=== PATIENT | male | born 1965 | race Caucasian/White ===

== ENCOUNTER 2016-11-03 11:36 | Inpatient (IN) | payer BC ==
[~2016-11-03] VITALS: Ht 152.4 cm; Wt 110.0 kg
[2016-11-03] VITALS (8 sets, daily range): BP systolic 131–181; BP diastolic 76–98; PULSE 67–84; TEMP 36.4–37.1; O2SAT 94–99; Ht 152.4 cm; Wt 110.0 kg
[2016-11-03] MEDS ORDERED: HYDROmorphone INJ 1 MG/ML SYR IV STA ×2 (12:10)
[2016-11-03] MEDS ORDERED: SODIUM CHLORIDE 0.9% 1000ML 1,000 ML IV STA (12:10)
[2016-11-03] MEDS ORDERED: ONDANSETRON INJ 2 MG/ML 2 ML VIAL IV STA ×2 (12:10)
[2016-11-03] MEDS ORDERED: LISI-729 PO (12:14)
[2016-11-03] MEDS ORDERED: SITA100T3 PO (12:14)
[2016-11-03] MEDS ORDERED: PRVC10 PO (12:14)
[2016-11-03] MEDS ORDERED: GLIM4TAB PO (12:14)
[2016-11-03] MEDS ORDERED: ASPI81TA28 PO (12:14)
[2016-11-03 12:21] LABS: BASO % 0.3 %; BASO ABS # 0.03 K/uL (0-0.2); COMPLETE YES; EOS % 0.6 %; IG% 0.3 %; LYMPH % 18.8 %; LYMPH ABS # 2.24 K/uL (1.2-3.4); MEAN CELL VOLUME 89.2 fL (80-100); MEAN CORPUSCULAR HGB CONC 35.8 g/dl (32-36); MEAN PLATELET VOLUME 11.3 fL (7.4-10.4); MONO % 12.2 %; NEUT % 67.8 %; PLATELET COUNT 160 K/uL (130-400); RED BLOOD COUNT 4.82 M/uL (4.7-6.1); WHITE BLOOD COUNT 11.91 K/uL (4.8-10.8)
--- NOTE | 2016-11-03 12:27 | EMERGENCY ROOM VISIT NOTE ---
History Report prepared by Dorothy: Petar Cabrera Under the Supervision of: Dr. Reji Sutton M.D. First contact with patient: 12:06 Chief Complaint: KIDNEY STONE Stated Complaint: KIDNEY STONE LODGED History of Present Illness The patient is a 51 year old male who presents to the Emergency Room with complaints of persistent left sided flank pain starting a few days ago. The patient was seen at the [facility] 2 days ago. He had a CT scan which showed 15 mm large obstructing left mid ureter calculus with severe hydronephrosis and perinephric edema. The patient currently complains of nausea and severe pain. He denies chest pain, shortness of breath, or any other complaints. Source of History: patient Onset: a few days ago Position: other (left sided flank) Symptom Intensity: severe Timing: other (persistent) Associated Symptoms: + nausea, No SOB, No chest pain Review of Systems See HPI for pertinent positives & negatives. A total of 10 systems reviewed and were otherwise negative. Past Medical & Surgical Medical Problems: (1) Diabetes mellitus, type II (2) Dyslipidemia (3) Kidney stone (4) Renal calculi Surgical Problems: (1) H/O lithotripsy Family History Patient reports no known family medical history. Social History Smoking Status: Never Smoker Marital Status: Occupation Status: employed Current/Historical Medications Scheduled Aspirin (Aspirin Ec), 81 MG PO DAILY Glimepiride (Amaryl), 4 MG PO BID Lisinopril (Prinivil), 5 MG PO DAILY Pravastatin Sod (Pravastatin Sodium), 10 MG PO HS Sitagliptin Phosphate (Januvia), 100 MG PO DAILY Allergies Coded Allergies: Simvastatin (Verified Allergy, Mild, ., 11/03/16) Physical Exam Vital Signs Date Time Temp Pulse Resp B/P Pulse Ox O2 Delivery O2 Flow Rate FiO2 11/03/16 13:45 59 18 153/87 98 Room Air 11/03/16 12:30 99 Room Air 11/03/16 12:26 62 18 136/77 99 Room Air 11/03/16 11:45 36.7 66 16 126/77 98 Room Air Physical Exam CONSTITUTIONAL: Moderate painful distress HEENT: No icterus, moist mucous membranes NECK: No meningismus, trachea is midline. CARDIOVASCULAR: Regular rate, normal perfusion RESPIRATORY: Unlabored breathing. Clear to auscultation. GASTROINTESTINAL: Non-tender GENITOURINARY: left sided flank tenderness MUSCULOSKELETAL: Full range of motion NEUROLOGIC: No acute gross focal deficits. PSYCHIATRIC: Normal affect SKIN: Normal for ethnicity. Medical Decision & Procedures ER Provider Diagnostic Interpretation: X-ray results as stated below per interpretation by me and the radiologist. KUB CLINICAL HISTORY: Left ureteral calculus COMPARISON STUDY: No previous studies for comparison. FINDINGS: No renal calculi are visualized. There is a faint 17 mm opacity at the L3-4 level to the left of midline. A faintly opaque left ureteral calculus cannot be excluded. There is no pathologic bowel dilatation. IMPRESSION: 1. No evidence of pathologic bowel dilatation 2. Very faint 17 mm opacity at the L3-4 level to the left of midline. A faintly opaque left ureteral calculus cannot be excluded. CT scanning could be obtained in follow-up for further evaluation as deemed clinically indicated. Electronically signed by: Kan Goetz M.D. 11/03/2016 1:19 PM Dictated Date/Time: 11/03/2016 1:16 PM Laboratory Results 11/03/16 12:02 Red Blood Count 4.82, Mean Corpuscular Volume 89.2, Mean Corpuscular Hemoglobin 32.0, Mean Corpuscular Hemoglobin Concent 35.8, Mean Platelet Volume 11.3, Neutrophils (%) (Auto) 67.8, Lymphocytes (%) (Auto) 18.8, Monocytes (%) (Auto) 12.2, Eosinophils (%) (Auto) 0.6, Basophils (%) (Auto) 0.3, Neutrophils # (Auto ) 8.09, Lymphocytes # (Auto) 2.24, Monocytes # (Auto) 1.45, Eosinophils # (Auto ) 0.07, Basophils # (Auto) 0.03 11/03/16 12:02 Test 11/03/16 12:02 White Blood Count 11.91 K/uL (4.8-10.8) Red Blood Count 4.82 M/uL (4.7-6.1) Hemoglobin 15.4 g/dL (14.0-18.0) Hematocrit 43.0 % (42-52) Mean Corpuscular Volume 89.2 fL (80-100) Mean Corpuscular Hemoglobin 32.0 pg (25-34) Mean Corpuscular Hemoglobin Concent 35.8 g/dl (32-36) Platelet Count 160 K/uL (130-400) Mean Platelet Volume 11.3 fL (7.4-10.4) Neutrophils (%) (Auto) 67.8 % Lymphocytes (%) (Auto) 18.8 % Monocytes (%) (Auto) 12.2 % Eosinophils (%) (Auto) 0.6 % Basophils (%) (Auto) 0.3 % Neutrophils # (Auto) 8.09 K/uL (1.4-6.5) Lymphocytes # (Auto) 2.24 K/uL (1.2-3.4) Monocytes # (Auto) 1.45 K/uL (0.11-0.59) Eosinophils # (Auto) 0.07 K/uL (0-0.5) Basophils # (Auto) 0.03 K/uL (0-0.2) RDW Standard Deviation 39.9 fL (36.4-46.3) RDW Coefficient of Variation 12.4 % (11.5-14.5) Immature Granulocyte % (Auto) 0.3 % Immature Granulocyte # (Auto) 0.03 K/uL (0.00-0.02) Anion Gap 12.0 mmol/L (3-11) Est Creatinine Clear Calc Drug Dose 49.7 ml/min Estimated GFR () 48.7 Estimated GFR (Non- 42.0 BUN/Creatinine Ratio 12.7 (10-20) Calcium Level 8.8 mg/dl (8.5-10.1) Hepatitis C Antibody Screen NEG (NEG) Labs reviewed by ED physician. Medications Administered Medications (Trade) Dose Ordered Sig/Beryl Route Start Time Stop Time Status Last Admin Dose Admin Sodium Chloride (Nss 1000ml) 1,000 ml @ 0 mls/hr Q0M STAT IV 11/03/16 12:10 11/03/16 12:13 DC 11/03/16 12:19 999 MLS/HR Hydromorphone HCl (Dilaudid Inj) 1 mg PRN STAT IV 11/03/16 12:10 11/03/16 12:13 DC 11/03/16 12:20 1 MG Ondansetron HCl (Zofran Inj) 4 mg NOW STAT IV 11/03/16 12:10 11/03/16 12:13 DC 11/03/16 12:19 4 MG Ketorolac Tromethamine (Toradol Inj) 30 mg STK-MED ONCE .ROUTE 11/03/16 13:38 11/03/16 13:40 DC 11/03/16 13:45 15 MG ED Course 1206: Past medical records reviewed. The patient was evaluated in room C11B. A complete history and physical examination was performed. 1210: Zofran Inj 4 mg IV, Dilaudid Inj 1 mg IV, Sodium Chloride 1000 ml @ 0 mls/ hr Wide Open IV 1336: Upon reexamination the patient is resting comfortably. I discussed results and treatment plan with the patient. He verbalizes agreement and understanding. I spoke with Norma Jaime PA-C from the [facility]. The patient will be evaluated for further management. Medical Decision 51-year-old with known history of stones presents into the emergency room for intractable pain after CT demonstrated 15 mm stone and edema with perinephric stranding at another facility. Medicated for pain and admission arranged. Consults Time Called: 1331 Consulting Physician: Norma Jaime PA-C from the [facility] Returned Call: [phone] I spoke with Norma Jaime PA-C from the [facility]. Impression Primary Impression: Kidney stone Scribe Attestation The scribe's documentation has been prepared under my direction and personally reviewed by me in its entirety. I confirm that the note above accurately reflects all work, treatment, procedures, and medical decision making performed by me. Departure Information Dispostion Being Evaluated By Hospitalist Referrals No Doctor, Assigned (PCP) Patient Instructions My [facility]
[2016-11-03 12:35] LABS: BUN/CREATININE RATIO 12.7 (10-20); CALCIUM 8.8 mg/dl (8.5-10.1); CREATININE 1.8 mg/dl (0.60-1.40); POTASSIUM 3.7 mmol/L (3.5-5.1)
--- NOTE | 2016-11-03 13:20 | DIAGNOSTIC IMAGING REPORT ---
KUB CLINICAL HISTORY: Left ureteral calculus COMPARISON STUDY: No previous studies for comparison. FINDINGS: No renal calculi are visualized. There is a faint 17 mm opacity at the L3-4 level to the left of midline. A faintly opaque left ureteral calculus cannot be excluded. There is no pathologic bowel dilatation. IMPRESSION: 1. No evidence of pathologic bowel dilatation 2. Very faint 17 mm opacity at the L3-4 level to the left of midline. A faintly opaque left ureteral calculus cannot be excluded. CT scanning could be obtained in follow-up for further evaluation as deemed clinically indicated. Electronically signed by: Kan Goetz M.D. 11/03/2016 1:19 PM Dictated Date/Time: 11/03/2016 1:16 PM
[2016-11-03] MEDS ORDERED: KETOROLAC TROMETHAMINE 30 MG/ML VIAL ONE (13:38)
[2016-11-03] MEDS ORDERED: ONDANSETRON INJ 2 MG/ML 2 ML VIAL IV PRN ×2 (14:15→17:30)
[2016-11-03] MEDS ORDERED: ACETAMINOPHEN 325 MG TAB PO PRN (14:15)
[2016-11-03] MEDS ORDERED: TAMSULOSIN HCL 0.4 MG CAP PO ONE (14:15)
[2016-11-03] MEDS ORDERED: DEXTROSE 50% 50 ML SYR IV PRN (14:30)
[2016-11-03] MEDS ORDERED: GLUCOSE 40% GEL 15 GM TUBE PO PRN (14:30)
[2016-11-03] MEDS ORDERED: GLUCAGON FOR INJ 1 MG VIAL SQ PRN (14:30)
[2016-11-03] MEDS ORDERED: GLUCOSE 10 TABS/TUBE PO PRN (14:30)
[2016-11-03] MEDS ORDERED: KETOROLAC TROMETHAMINE 30 MG/ML VIAL IV PRN (14:45)
--- NOTE | 2016-11-03 14:51 | History and Physical ---
History & Physical Date & Time of Service: Nov 03, 2016 at 14:30 Chief Complaint: Kidney Stone Lodged Primary Care Physician: Duong Schultz D.O. History of Present Illness Source: patient This is a 51 y/o male with PMHx of DM 2 and dyslipidemia who presents to the ED c/o L flank pain x 2 hammond. Pt reports that 2 days ago he developed L flank pain that he describes as intermittent 8/10 "stabbing" pain that radiates into his groin. He has been taking oxycodone, ibuprofen and zofran to alleviate his sxs with only minimal temporary relief. Sxs are assoc with N/V. Pt was seen at [facility] ED [address] abd/pelvis showed 15 mm L ureteral calculus. Pt was discharged with pain medication and told to f/u next week to schedule procedure. This morning, the pain got much worse which prompted patient to return to the ED. Pt has a history of multiple stones in the past one of which required intervention (lithotripsy 2013). Pt denies fever/chills, chest pain, SOB, abd pain, constipation, diarrhea, dysuria, hematuria, LE edema , calf pain, lightheadedness/dizziness. In the ED, vitals are stable. Pt is afebrile with leukocytosis >11. creatinine 1.8. KUB + 17 mm obstructing L ureteral calculus. Pt received IVF, Zofran and pain medication in the ED which has helped. Pt will be admitted for further evaluation and treatment. Past Medical/Surgical History Medical Problems: (1) Diabetes mellitus, type II Status: Chronic (2) Dyslipidemia Status: Chronic Surgical Problems: (1) H/O lithotripsy Permanent Comment: L side 2013 Status: Resolved Family History Patient reports no known family medical history. Social History Smoking Status: Never Smoker Alcohol Use: occasionally Drug Use: none Marital Status: Housing status: lives with family Occupational Status: employed Allergies Coded Allergies: Simvastatin (Verified Allergy, Mild, ., 11/03/16) Home Medications Scheduled Aspirin (Aspirin Ec), 81 MG PO DAILY Glimepiride (Amaryl), 4 MG PO BID Lisinopril (Prinivil), 5 MG PO DAILY Pravastatin Sod (Pravastatin Sodium), 10 MG PO HS Sitagliptin Phosphate (Januvia), 100 MG PO DAILY Review of Systems Constitutional: No chills, No fatigue, No fever, No sweats, No weakness Eyes: No worsening of vision Respiratory: No cough, No shortness of breath Cardiovascular: No chest pain, No claudication, No edema Abdomen: + nausea, + vomiting, No constipation, No diarrhea, No pain Musculoskeletal: No calf pain, No swelling Genitourinary - Male: No dysuria, No hematuria Neurologic: No weakness Psychiatric: No depression symptoms Endocrine: No fatigue Hematologic / Lymphatic: No abnormal bleeding/bruising Integumentary: No new/changing skin lesions Physical Exam Vital Signs Date Time Temp Pulse Resp B/P Pulse Ox O2 Delivery O2 Flow Rate FiO2 11/03/16 13:45 59 18 153/87 98 Room Air 11/03/16 12:30 99 Room Air 11/03/16 12:26 62 18 136/77 99 Room Air 11/03/16 11:45 36.7 66 16 126/77 98 Room Air General Appearance: WD/WN, no apparent distress, + pertinent finding (Pt is sitting up in bed with at bedside ) Head: normocephalic, atraumatic Eyes: normal inspection ENT: hearing grossly normal Neck: supple Respiratory/Chest: chest non-tender, lungs clear, normal breath sounds, no respiratory distress Cardiovascular: regular rate, rhythm, no edema, no murmur Abdomen/GI: normal bowel sounds, soft, + tenderness (mild left lower quadrant tenderness) Back: normal inspection, + left CVA tenderness Extremities/Musculoskelatal: normal inspection, no calf tenderness, no pedal edema Neurologic/Psych: alert, normal mood/affect, oriented x 3 Skin: normal color, warm/dry Diagnostics Laboratory Results Results Past 24 Hours Test 11/03/16 12:02 Range/Units White Blood Count 11.91 4.8-10.8 K/uL Red Blood Count 4.82 4.7-6.1 M/uL Hemoglobin 15.4 14.0-18.0 g/dL Hematocrit 43.0 42-52 % Mean Corpuscular Volume 89.2 80-100 fL Mean Corpuscular Hemoglobin 32.0 25-34 pg Mean Corpuscular Hemoglobin Concent 35.8 32-36 g/dl Platelet Count 160 130-400 K/uL Mean Platelet Volume 11.3 7.4-10.4 fL Neutrophils (%) (Auto) 67.8 % Lymphocytes (%) (Auto) 18.8 % Monocytes (%) (Auto) 12.2 % Eosinophils (%) (Auto) 0.6 % Basophils (%) (Auto) 0.3 % Neutrophils # (Auto) 8.09 1.4-6.5 K/uL Lymphocytes # (Auto) 2.24 1.2-3.4 K/uL Monocytes # (Auto) 1.45 0.11-0.59 K/uL Eosinophils # (Auto) 0.07 0-0.5 K/uL Basophils # (Auto) 0.03 0-0.2 K/uL RDW Standard Deviation 39.9 36.4-46.3 fL RDW Coefficient of Variation 12.4 11.5-14.5 % Immature Granulocyte % (Auto) 0.3 % Immature Granulocyte # (Auto) 0.03 0.00-0.02 K/uL Sodium Level 139 136-145 mmol/L Potassium Level 3.7 3.5-5.1 mmol/L Chloride Level 104 98-107 mmol/L Carbon Dioxide Level 23 21-32 mmol/L Anion Gap 12.0 3-11 mmol/L Blood Urea Nitrogen 23 7-18 mg/dl Creatinine 1.80 0.60-1.40 mg/dl Est Creatinine Clear Calc Drug Dose 49.7 ml/min Estimated GFR () 48.7 Estimated GFR (Non- 42.0 BUN/Creatinine Ratio 12.7 10-20 Random Glucose 134 70-99 mg/dl Calcium Level 8.8 8.5-10.1 mg/dl Diagnostic Radiology KUB IMPRESSION: 1. No evidence of pathologic bowel dilatation 2. Very faint 17 mm opacity at the L3-4 level to the left of midline. A faintly opaque left ureteral calculus cannot be excluded. CT scanning could be obtained in follow-up for further evaluation as deemed clinically indicated. Impression Assessment and Plan L OBSTRUCTING URETERAL CALCULUS pt presented with L flank pain x 2 says assoc with N/V; h/o multiple renal calculi -admit to med/surg -pt is afebrile with leukocytosis -KUB + 17mm obstructing L ureteral calculus -UA uncollected; will check culture -start IVF and Flomax -Toradol PRN pain -Pyridium post-operatively x 3 days -no post-op abx per urology -consulted urology, Dr. Baltazar -monitor HEATHER -creatinine elevated at 1.8 (bl=1.0); due to obstruction (see above) -hold lisinopril and start IVF -monitor with prp daily and avoid nephrotoxic agents when able DM 2 -last A1C 9.3; repeat in AM -hold Januvia and Glimepiride -start ISS -monitor DYSLIPIDEMIA -cont statin DVT PROPHYLAXIS -SCDs only due to upcoming procedure CODE STATUS -FULL CODE status DISPO -Pt seen in collaboration with Dr. Leary. Please see her addendum for further details. Thanks! ADDENDUM: I have evaluated the patient and discussed the case with the provider above. He is s/p ureteroscopy with stone removal and stent placement and is pain-free and feeling well. BP is elevated and he denies taking lisinopril today, will cont to hold in setting of HEATHER and give IV hydralazine and PRN for overnight. On exam he is hemodynamically stable and afebrile, exam is unremarkable with no CVA tenderness or abdominal pain. I agree with the plan as stated above and also noted that Dr. Baltazar requested no abx after loading with Ancef today. Pyridium was ordered for dysuria. Will stabilize BP overnight and repeat PRP in the morning to ensure he is better. Radha Leary , Hospitalist Level of Care Med/Surg Advanced Directives Existing Living Will: No Existing Power of Customer Servicer: No Resuscitation Status FULL RESUSCITATION VTE Prophylaxis VTE Risk Assessment Done? Y/N: Yes Risk Level: Low Given or contraindicated: SCD's
[2016-11-03 15:07] LABS: MANUAL MICROSCOPIC REQUIRED? NO; REVIEW REQ? YES; URINE APPEARANCE CLOUDY (CLEAR); URINE BILIRUBIN NEG (NEG); URINE COLOR YELLOW; URINE NITRITE NEG (NEG); UROBILINOGEN NEG (NEG); ZZUR CULT IF INDIC CLEAN CATCH NO
[2016-11-03] MEDS ORDERED: PNEUMOCOCCAL ADMINISTRATION CHARGE ONE (15:15)
[2016-11-03] MEDS ORDERED: PNEUMOCOCCAL POLYSACCHARIDES 25 MCG/0.5 ML VIAL/SYR IM. ONE (15:15)
[2016-11-03] MEDS: SODIUM CHLORIDE 0.9% 1000ML 1,000 ML IV SCH ×2 (15:29→19:53)
[2016-11-03] MEDS ORDERED: ROCURONIUM BROMIDE 10 MG/ML 5 ML VIAL ONE (15:55)
[2016-11-03] MEDS ORDERED: LIDOCAINE HCL 2% 2 ML VIAL (20MG/ML) ONE (15:55)
[2016-11-03] MEDS ORDERED: ONDANSETRON INJ 2 MG/ML 2 ML VIAL ONE (15:55)
[2016-11-03] MEDS ORDERED: PROPOFOL IV EMULSION 10 MG/ML 20 ML VIAL IV ONE ×2 (15:55→16:44)
[2016-11-03] MEDS ORDERED: MIDAZOLAM HCL 1 MG/ML 2ML VIAL ONE (15:55)
[2016-11-03] MEDS ORDERED: FENTANYL CITRATE INJ 50 MCG/1 ML 2 ML VIAL ONE ×2 (15:55→16:27)
[2016-11-03] MEDS ORDERED: DEXAMETHASONE SOD INJ 4 MG/ML VIAL ONE (15:55)
[2016-11-03] MEDS ORDERED: NURSING VERBAL MED ORDER ONE (16:10)
[2016-11-03] MEDS ORDERED: CEFAZOLIN IV 2,000 MG/60 ML D5W IV ONE (16:13)
--- NOTE | 2016-11-03 16:18 | Urology Consultation ---
History General Date of Service: Nov 03, 2016. Chief Complaint: left ureteral stone Primary Care Physician: Duong Schultz D.O. Pt seen a urologist before?: Yes If yes, why?: left renal stone History of Present Illness I am asked by Norma Jaime to evaluate and treat patient for stone. He is in ER with 155 left ureteral stone. His creatinine is elevated. He has mild to moderate pain and nausea. He has no fever. Imaging Imaging: CT, KUB Laboratory Results Past 24 Hours Test 11/03/16 12:02 11/03/16 14:48 Range/Units White Blood Count 11.91 4.8-10.8 K/uL Red Blood Count 4.82 4.7-6.1 M/uL Hemoglobin 15.4 14.0-18.0 g/dL Hematocrit 43.0 42-52 % Mean Corpuscular Volume 89.2 80-100 fL Mean Corpuscular Hemoglobin 32.0 25-34 pg Mean Corpuscular Hemoglobin Concent 35.8 32-36 g/dl Platelet Count 160 130-400 K/uL Mean Platelet Volume 11.3 7.4-10.4 fL Neutrophils (%) (Auto) 67.8 % Lymphocytes (%) (Auto) 18.8 % Monocytes (%) (Auto) 12.2 % Eosinophils (%) (Auto) 0.6 % Basophils (%) (Auto) 0.3 % Neutrophils # (Auto) 8.09 1.4-6.5 K/uL Lymphocytes # (Auto) 2.24 1.2-3.4 K/uL Monocytes # (Auto) 1.45 0.11-0.59 K/uL Eosinophils # (Auto) 0.07 0-0.5 K/uL Basophils # (Auto) 0.03 0-0.2 K/uL RDW Standard Deviation 39.9 36.4-46.3 fL RDW Coefficient of Variation 12.4 11.5-14.5 % Immature Granulocyte % (Auto) 0.3 % Immature Granulocyte # (Auto) 0.03 0.00-0.02 K/uL Sodium Level 139 136-145 mmol/L Potassium Level 3.7 3.5-5.1 mmol/L Chloride Level 104 98-107 mmol/L Carbon Dioxide Level 23 21-32 mmol/L Anion Gap 12.0 3-11 mmol/L Blood Urea Nitrogen 23 7-18 mg/dl Creatinine 1.80 0.60-1.40 mg/dl Est Creatinine Clear Calc Drug Dose 49.7 ml/min Estimated GFR () 48.7 Estimated GFR (Non- 42.0 BUN/Creatinine Ratio 12.7 10-20 Random Glucose 134 70-99 mg/dl Calcium Level 8.8 8.5-10.1 mg/dl Hepatitis C Antibody Screen NEG NEG Urine Color YELLOW Urine Appearance CLOUDY CLEAR Urine pH 5.0 4.5-7.5 Urine Specific [place] 1.030 1.000-1.030 Urine Protein TRACE NEG Urine Glucose (UA) 2+ NEG Urine Ketones 1+ NEG Urine Occult Blood 2+ NEG Urine Nitrite NEG NEG Urine Bilirubin NEG NEG Urine Urobilinogen NEG NEG Urine Leukocyte Esterase NEG NEG Urine WBC (Auto) 5-10 0-5 /hpf Urine RBC (Auto) 0-4 0-4 /hpf Urine Hyaline Casts (Auto) 1-5 0-5 /lpf Urine Epithelial Cells (Auto) 10-20 0-5 /lpf Urine Bacteria (Auto) NEG NEG Urine Crystals TRIPLE PHOSPHATE NONE PRSENT Labs were reviewed and are within normal limits unless listed below. Labs are available in the chart and at [facility] Past History diabetes, high cholesterol Past Surgical History: other (stone surgery) Family History Patient reports no known family medical history. Social History Hx Tobacco Use In Past Year?: No Smoking: non-smoker Alcohol: socially Marital status: Housing status: lives with family Occupation status: employed Allergies Coded Allergies: Simvastatin (Verified Allergy, Mild, ., 11/03/16) Medications Home Medications: Home Meds and Scripts Medications Dose Route/Sig Max Daily Dose Days Date Category Januvia (Sitagliptin Phosphate) 100 Mg Tab 100 Mg PO DAILY 11/03/16 Reported Aspirin Ec (Aspirin) 81 Mg Tab 81 Mg PO DAILY 11/03/16 Reported Amaryl (Glimepiride) 4 Mg Tab 4 Mg PO BID 11/03/16 Reported Pravastatin Sodium (Pravastatin Sod) 10 Mg Tab 10 Mg PO HS 11/03/16 Reported Prinivil (Lisinopril) 5 Mg Tab 5 Mg PO DAILY 11/03/16 Reported Inpatient Medications: Current Inpatient Medications Medications (Trade) Dose Ordered Sig/Beryl Route Start Time Stop Time Status Last Admin Dose Admin Acetaminophen (Tylenol Tab) 650 mg Q4H PRN PO 11/03/16 14:15 12/03/16 14:14 Ondansetron HCl (Zofran Inj) 4 mg Q6H PRN IV 11/03/16 14:15 12/03/16 14:14 Tamsulosin HCl 0.4 mg 0.4 mg QAM PO 11/04/16 09:00 12/04/16 08:59 Sodium Chloride (Nss 1000ml) 1,000 ml @ 100 mls/hr Q10H IV 11/03/16 14:15 12/03/16 14:14 11/03/16 15:29 100 MLS/HR Insulin Aspart (novoLOG ASPART) SLIDING SCALE If C... ACHS SC 11/03/16 16:00 12/03/16 15:59 Glucose (Glucose 40% Gel) 15-30 GRAMS 15 GRAMS... UD PRN PO 11/03/16 14:30 12/03/16 14:29 Glucose (Glucose Chew Tab) 4-8 Tablets 4 Tabl... UD PRN PO 11/03/16 14:30 12/03/16 14:29 Dextrose (Dextrose 50% 50ML Syringe) 25-50ML OF 50% DW IV FOR... UD PRN IV 11/03/16 14:30 12/03/16 14:29 Glucagon (Glucagon Inj) 1 mg UD PRN SQ 11/03/16 14:30 12/03/16 14:29 Ketorolac Tromethamine (Toradol Inj) 30 mg Q6H PRN IV 11/03/16 14:45 11/08/16 14:44 Review of Systems Review of Systems Constitutional: No chills, No fever, No frequent headaches, No weight loss Neurological: No dizzy Endocrine: No excessive thirst, No tired/sluggish, No too cold, No too hot Gastrointestinal: + abdominal pain, + nausea, No constipation, No diarrhea Cardiovascular: No chest pain, No palpitations Respiratory: No shortness of breath Male : + kidney stones, + nocturia more than once/night, No frequent urination, No infections Physical Exam Vital Signs: Vital Signs Past 12 Hours Date Time Temp Pulse Resp B/P Pulse Ox O2 Delivery O2 Flow Rate FiO2 11/03/16 15:45 36.7 71 18 151/89 94 Room Air 11/03/16 13:45 59 18 153/87 98 Room Air 11/03/16 12:30 99 Room Air 11/03/16 12:26 62 18 136/77 99 Room Air 11/03/16 11:45 36.7 66 16 126/77 98 Room Air Physical Exam: General Appearance: WD/WN, no apparent distress, + obese Eyes: bilateral eyes normal inspection ENT: hearing grossly normal Neck: no adenopathy Respiratory/Chest: no respiratory distress, no accessory muscle use Extremities: normal inspection, no pedal edema, no calf tenderness Neurologic/Psychiatric: alert, normal mood/affect, oriented x 3 Skin: normal color, warm/dry, no rash Assessment & Plan Assessment & Plan large left ureteral stone plan left uscope laser litho basket stone extraction stent I described surgery and he signed consent
[2016-11-03] MEDS ORDERED: GLYCOPYRROLATE INJ 0.2 MG/ML VIAL ONE (17:05)
[2016-11-03] MEDS ORDERED: NEOSTIGMINE METHYLSULFATE 5 MG/5 ML SYR ONE (17:05)
[2016-11-03] MEDS ORDERED: BELLADONNA/OPIUM SUPP 60 MG SUPP PR ONE (17:07)
[2016-11-03] MEDS ORDERED: LACTATED RINGER'S 1000ML 1,000 ML IV PRN (17:19)
--- NOTE | 2016-11-03 17:22 | DIAGNOSTIC IMAGING REPORT ---
FLUOROSCOPIC IMAGES FROM LEFT RETROGRADE EXAM CLINICAL HISTORY: Stent placement. Retrograde exam. COMPARISON STUDY: KUB performed earlier today. Fluoroscopy time: 17 seconds. FINDINGS: 2 fluoroscopic images were obtained from a left retrograde exam and demonstrate cannulation of the left ureter with placement of a left ureteral stent. Distal aspect of the stent projects over the left aspect of the bladder. IMPRESSION: Fluoroscopic images from left retrograde exam with stent insertion. Electronically signed by: Benjamin Vogel M.D. 11/03/2016 5:21 PM Dictated Date/Time: 11/03/2016 5:20 PM
--- NOTE | 2016-11-03 17:22 | [facility] Operative Report ---
Operative Report Operative Date Nov 03, 2016. Pre-Operative Diagnosis obstructing left ureteral stone Post-Operative Diagnosis same Procedure(s) Performed cysto left ureteroscopy laser lithotripsy basket stone extraction stent placement Surgeon Dr. Tali Baltazar Mirror Fabrication Supervisor Surgeon(s) None Estimated Blood Loss 2ml Findings faintly radio-opaque large stone in upper ureter Fluids 1100mL Specimens A. Left Ureteral Stone Fragmants Drains 6 fr 24 centimeter double J stent Anesthesia GET Complication(s) None Disposition Recovery Room / PACU Indications patient with large obstructing left upper ureteral stone. Description of Procedure Patient was given general ET anesthesia and placed in lithotomy position. His genitals were prepped and draped in sterile fashion. Time out held with team. I placed a 21 fr rigid cystoscope to bladder. The urethra is unremarkable. The prostate is medium. The UOs are normal location and open shape. There are scores of small yellow crystals free floating in bladder. I placed a road runner wire up left ureter easily. I placed a 5 fr open ended over wire to kidney and there is brisk efflux thru it. I replaced wire for stiff wire. I then placed a dual lumen cath into distal ureter to calibrate UO. I placed a second wire. I removed dual lumen. I placed a flex ureteroscope over the second wire to upper ureter. I found stone as in imaging in upper ureter. It is bright yellow and oblong large. I used 200 micron holmium laser to fragment the stone into mostly dust. It eventually migrated into kdieny and I lasered it more there. I used a 2.2 fr tipless basket to remove about 5 stone fragments. All were very small and passed easily down ureter. I then removed scope and placed a 24 centimeter 6 Fr double J stent easily. There is brisk efflux after placement. I left bladder empty and concluded case. I placed a belladonna and opium suppository for post-op pain. He transferred to recovery under my escort, in stable condition. Plan: Home today Pyridium for dysuria x 3 days flomax daily until stent out in [facility] office in one week. 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 Any exceptions are noted below.
[2016-11-03] MEDS ORDERED: FENTANYL CITRATE INJ 50 MCG/1 ML 2 ML VIAL IV PRN (17:30)
[2016-11-03] MEDS ORDERED: PHENAZOPYRIDINE HCL 200 MG TAB PO PRN (17:30)
--- NOTE | 2016-11-03 17:54 | Anesthesiology Progress Note ---
Anesthesia Post Op Note Date & Time Nov 03, 2016 at 17:54 Vital Signs Pain Intensity: 0 Vital Signs Past 12 Hours Date Time Temp Pulse Resp B/P Pulse Ox O2 Delivery O2 Flow Rate FiO2 11/03/16 17:35 37.3 75 16 134/71 98 Mask 10 11/03/16 15:45 36.7 71 18 151/89 94 Room Air 11/03/16 15:15 Room Air 11/03/16 13:45 59 18 153/87 98 Room Air 11/03/16 12:30 99 Room Air 11/03/16 12:26 62 18 136/77 99 Room Air 11/03/16 11:45 36.7 66 16 126/77 98 Room Air Notes Mental Status: alert / awake / arousable, participated in evaluation Pt Amnestic to Procedure: Yes Nausea / Vomiting: adequately controlled Pain: adequately controlled Airway Patency, RR, SpO2: stable & adequate BP & HR: stable & adequate Hydration State: stable & adequate Anesthetic Complications: no major complications apparent Pt doing well.
[2016-11-03] MEDS: INSULIN ASPART 100 UNITS/ML 3 ML PEN SC SCH ×2 (18:35→21:00)
[2016-11-03] MEDS ORDERED: HydrALAZINE HCL 20 MG/ML VIAL ONE (20:07)
[2016-11-03] MEDS ORDERED: HydrALAZINE HCL 20 MG/ML VIAL IV. STA (20:08)
[2016-11-03] MEDS ORDERED: LISINOPRIL 5 MG TAB PO ONE (20:15)
[2016-11-03] MEDS ORDERED: HydrALAZINE HCL 20 MG/ML VIAL IV. PRN (20:15)
[2016-11-03] MEDS: PHENAZOPYRIDINE HCL 100 MG TAB PO SCH (21:21)
[2016-11-04 04:00] VITALS: BP 120/74; PULSE 76; TEMP 36.8; O2SAT 94
[2016-11-04] MEDS: SODIUM CHLORIDE 0.9% 1000ML 1,000 ML IV SCH ×2 (05:13→11:12)
[2016-11-04 07:12] LABS: HEMATOCRIT 37.2 % (42-52); MEAN CELL VOLUME 89.6 fL (80-100); MEAN CORPUSCULAR HGB CONC 35.8 g/dl (32-36); MEAN PLATELET VOLUME 11.2 fL (7.4-10.4); PLATELET COUNT 142 K/uL (130-400); RED BLOOD COUNT 4.15 M/uL (4.7-6.1)
[2016-11-04 07:30] LABS: ESTIMATED AVERAGE GLUCOSE 212 mg/dl; HA1C FLAG Normal (Normal)
[2016-11-04 07:41] LABS: BUN/CREATININE RATIO 14.1 (10-20); CALCIUM 7.8 mg/dl (8.5-10.1); CREATININE 1.4 mg/dl (0.60-1.40); POTASSIUM 3.9 mmol/L (3.5-5.1)
[2016-11-04 07:45] VITALS: BP 128/82; PULSE 65; TEMP 36.8; O2SAT 95
[2016-11-04] MEDS: PHENAZOPYRIDINE HCL 100 MG TAB PO SCH (08:55)
[2016-11-04] MEDS: INSULIN ASPART 100 UNITS/ML 3 ML PEN SC SCH (08:55)
[2016-11-04] MEDS ORDERED: TAMSULOSIN HCL 0.4 MG CAP PO SCH (09:00)
[2016-11-04 09:17] VITALS: O2SAT 95
[2016-11-04 11:45] VITALS: BP 140/84; PULSE 67; TEMP 37.3; O2SAT 96
--- NOTE | 2016-11-04 12:56 | Progress Note ---
Internal Med Progress Note Date of Service: Nov 04, 2016. Provider Documentation: SUBJECTIVE: Patient is sitting comfortably in the bed and is in no apparent distress. Denies any acute pain, nausea/vomiting. Hematuria is gradually resolving. No other new change or complaint. Able to ambulate in the room. OBJECTIVE: Vital Signs-as noted below Examination: General Appearance: WD/WN, no apparent distress, Pt is sitting up in bed with at bedside Head: normocephalic, atraumatic Eyes: normal inspection ENT: hearing grossly normal Neck: supple, Central trachea, Respiratory/Chest: chest non-tender, lungs clear, normal breath sounds, no respiratory distress Cardiovascular: regular rate, rhythm, no edema, no murmur Abdomen/GI: normal bowel sounds, soft, mild left lower quadrant tenderness. Back: normal inspection, + left CVA which is mild. Extremities/Musculoskeletal: normal inspection, no calf tenderness, no pedal edema Neurologic/Psych: alert, normal mood/affect, oriented x 3 Skin: normal color, warm/dry Lab data as noted below. ASSESSMENT & PLAN: Left Sided Obstructing Ureteral Stone: Underwent cystoscopy left ureteroscopy laser lithotripsy basket stone extraction stent placement Patient presented with L flank pain x 2 says assoc with N/V; h/o multiple renal calculi. He is afebrile with leukocytosis -KUB + 17mm obstructing L ureteral calculus -UA uncollected; will check culture -Given IVF and Flomax -Toradol PRN pain -Pyridium post-operatively x 3 days -no post-op abx per urology -Reviewed Urology consult. Thanks for input. Acute Kidney Injury: Due to above. Resolving now. -Holding lisinopril and given IVF -monitor with prp daily and avoid nephrotoxic agents when able Diabetes Type II: Repeat HbA1c is 9.0. -Holding Januvia and Glimepiride which will be resumed after discharge. -Continue ISS -monitor Dyslipidemia: Continue Statin. DVT Prophylaxis: SCDs Code Status: FULL CODE Disposition: Discharge home later today. Follow up with Dr. Baltazar as per her recommendation. Vital Signs: Date Time Temp Pulse Resp B/P Pulse Ox O2 Delivery O2 Flow Rate FiO2 11/04/16 11:45 37.3 67 18 140/84 96 Room Air 11/04/16 09:17 95 Room Air 11/04/16 07:45 36.8 65 18 128/82 95 Room Air 11/04/16 04:00 36.8 76 16 120/74 94 Room Air 11/04/16 00:10 Room Air 11/03/16 23:12 36.6 76 18 138/79 95 Room Air 11/03/16 21:20 37.0 78 18 131/76 95 Room Air 11/03/16 20:31 37.1 84 18 133/80 96 Room Air 11/03/16 19:31 37.1 71 18 173/98 98 Nasal Cannula 2.0 11/03/16 19:00 36.4 67 18 181/92 99 Nasal Cannula 2.0 11/03/16 18:30 99 Nasal Cannula 2.0 11/03/16 18:07 36.9 58 18 144/82 100 Nasal Cannula 2 11/03/16 18:00 61 14 11/03/16 18:00 60 14 99 11/03/16 17:58 147/85 11/03/16 17:55 65 18 99 11/03/16 17:55 68 18 11/03/16 17:53 143/83 11/03/16 17:50 70 20 98 11/03/16 17:50 69 20 11/03/16 17:48 153/86 11/03/16 17:45 72 19 11/03/16 17:45 71 19 98 11/03/16 17:43 123/83 11/03/16 17:40 82 19 11/03/16 17:40 75 19 98 11/03/16 17:38 148/83 11/03/16 17:36 134/71 11/03/16 17:35 73 16 11/03/16 17:35 74 16 100 11/03/16 17:35 37.3 75 16 134/71 98 Mask 10 11/03/16 17:30 77 17 11/03/16 17:30 77 17 99 11/03/16 15:45 36.7 71 18 151/89 94 Room Air 11/03/16 15:15 Room Air 11/03/16 13:45 59 18 153/87 98 Room Air Lab Results: Results Past 24 Hours Test 11/03/16 14:48 11/03/16 16:08 11/03/16 17:30 11/03/16 20:30 Range/Units Urine Color YELLOW Urine Appearance CLOUDY CLEAR Urine pH 5.0 4.5-7.5 Urine Specific [place] 1.030 1.000-1.030 Urine Protein TRACE NEG Urine Glucose (UA) 2+ NEG Urine Ketones 1+ NEG Urine Occult Blood 2+ NEG Urine Nitrite NEG NEG Urine Bilirubin NEG NEG Urine Urobilinogen NEG NEG Urine Leukocyte Esterase NEG NEG Urine WBC (Auto) 5-10 0-5 /hpf Urine RBC (Auto) 0-4 0-4 /hpf Urine Hyaline Casts (Auto) 1-5 0-5 /lpf Urine Epithelial Cells (Auto) 10-20 0-5 /lpf Urine Bacteria (Auto) NEG NEG Urine Crystals TRIPLE PHOSPHATE NONE PRSENT Bedside Glucose 106 108 142 70-99 mg/dl Test 11/04/16 06:52 11/04/16 08:25 11/04/16 12:09 Range/Units White Blood Count 7.50 4.8-10.8 K/uL Red Blood Count 4.15 4.7-6.1 M/uL Hemoglobin 13.3 14.0-18.0 g/dL Hematocrit 37.2 42-52 % Mean Corpuscular Volume 89.6 80-100 fL Mean Corpuscular Hemoglobin 32.0 25-34 pg Mean Corpuscular Hemoglobin Concent 35.8 32-36 g/dl RDW Standard Deviation 40.6 36.4-46.3 fL RDW Coefficient of Variation 12.5 11.5-14.5 % Platelet Count 142 130-400 K/uL Mean Platelet Volume 11.2 7.4-10.4 fL Sodium Level 141 136-145 mmol/L Potassium Level 3.9 3.5-5.1 mmol/L Chloride Level 107 98-107 mmol/L Carbon Dioxide Level 23 21-32 mmol/L Anion Gap 11.0 3-11 mmol/L Blood Urea Nitrogen 20 7-18 mg/dl Creatinine 1.40 0.60-1.40 mg/dl Est Creatinine Clear Calc Drug Dose 63.9 ml/min Estimated GFR () 66.0 Estimated GFR (Non- 57.0 BUN/Creatinine Ratio 14.1 10-20 Random Glucose 111 70-99 mg/dl Estimated Average Glucose 212 mg/dl Hemoglobin A1c 9.0 4.5-5.6 % Calcium Level 7.8 8.5-10.1 mg/dl Bedside Glucose 128 115 70-99 mg/dl
[2016-11-04] MEDS ORDERED: PHEN-1042 PO (13:03)
[2016-11-04] MEDS ORDERED: FLM4 PO (13:03)
--- NOTE | 2016-11-04 13:05 | Discharge Instructions ---
Discharge Instructions Admission Reason for Admission: Renal Calculi Discharge Discharge Diagnosis / Problem: Left Sided Renal Calculi Discharge Goals Goal(s): Decrease discomfort, Improve function, Increase independence, Improve disease control, Improve nutritional status, Learn about illness, Diagnostic testing, Therapeutic intervention Activity Recommendations Activity Limitations: resume your previous activity Lifting Limitations: no more than 10 pounds Exercise/Sports Limitations: as tolerated May Resume Sexual Activity: after one week Shower/Bathe: no limitations Driving or Machine Use: no limitations . Instructions / Follow-Up Instructions / Follow-Up Take all the medications as directed. Monitor your blood sugar regularly Follow dietary precautions Drink lots of fluids Follow up with Dr. Baltazar as per her advice. Current Hospital Diet Patient's current hospital diet: Diabetes Type 2 Diet Discharge Diet Recommended Diet: AHA Diet (Heart Healthy), Diabetes Type 2 Diet Procedures Procedures Performed: Ureteroscopy, Laser Lithotripsy- Basket Stone Extraction Pending Studies Studies pending at discharge: no Laboratory Results Hemoglobin A1c Test 11/04/16 06:52 Range/Units Estimated Average Glucose 212 mg/dl Hemoglobin A1c 9.0 H 4.5-5.6 % Medical Emergencies . Who to Call and When: Medical Emergencies: If at any time you feel your situation is an emergency, please call 911 immediately. . Non-Emergent Contact Non-Emergency issues call your: Primary Care Provider, Urologist Call Non-Emergent contact if: your pain is worsening . . "Provider Documentation" section prepared by Tad Storm. VTE Core Measure Inpt VTE Proph given/why not?: SCD's
--- NOTE | 2016-11-04 13:08 | Discharge Summary ---
Discharge Summary Admission Date: Nov 03, 2016 at 14:12 Discharge Date: Nov 04, 2016 Discharge Disposition: Home Principal Diagnosis: Left Sided Obstructing Ureteral Stone Acute Kidney In [place] (Resolving) Secondary Diagnoses/Problems: Diabetes Type II Dyslipidemia Procedures: Cystoscopy left ureteroscopy laser lithotripsy basket stone extraction stent placement Vaccinations: NONE Consultations: Urology Pending Studies/Follow-Up: Follow up with Dr. Baltazar as per her advice Needs to follow up with Nephrology to learn alkalinization of Urine. Medication Reconciliation New Medications: Phenazopyridine HCl (Phenazopyridine HCl) 100 Mg Tab 100 MG PO TID, #10 TAB Tamsulosin HCl (Tamsulosin HCl) 0.4 Mg Cap 0.4 MG PO QAM, #14 CAP Continued Medications: Aspirin (Aspirin Ec) 81 Mg Tab 81 MG PO DAILY Glimepiride (Amaryl) 4 Mg Tab 4 MG PO BID Lisinopril (Prinivil) 5 Mg Tab 5 MG PO DAILY Pravastatin Sod (Pravastatin Sodium) 10 Mg Tab 10 MG PO HS Sitagliptin Phosphate (Januvia) 100 Mg Tab 100 MG PO DAILY Admission Information HPI (per Admitting provider): This is a 51 y/o male with PMHx of DM 2 and dyslipidemia who presents to the ED c/o L flank pain x 2 hammond. Pt reports that 2 days ago he developed L flank pain that he describes as intermittent 8/10 "stabbing" pain that radiates into his groin. He has been taking oxycodone, ibuprofen and zofran to alleviate his sxs with only minimal temporary relief. Sxs are assoc with N/V. Pt was seen at [facility] ED [address] abd/pelvis showed 15 mm L ureteral calculus. Pt was discharged with pain medication and told to f/u next week to schedule procedure. This morning, the pain got much worse which prompted patient to return to the ED. Pt has a history of multiple stones in the past one of which required intervention (lithotripsy 2013). Pt denies fever/chills, chest pain, SOB, abd pain, constipation, diarrhea, dysuria, hematuria, LE edema , calf pain, lightheadedness/dizziness. In the ED, vitals are stable. Pt is afebrile with leukocytosis >11. creatinine 1.8. KUB + 17 mm obstructing L ureteral calculus. Pt received IVF, Zofran and pain medication in the ED which has helped. Pt will be admitted for further evaluation and treatment. Physical Exam (per Admitting): General Appearance: WD/WN, no apparent distress, + pertinent finding (Pt is sitting up in bed with at bedside ) Head: normocephalic, atraumatic Eyes: normal inspection ENT: hearing grossly normal Neck: supple Respiratory/Chest: chest non-tender, lungs clear, normal breath sounds, no respiratory distress Cardiovascular: regular rate, rhythm, no edema, no murmur Abdomen/GI: normal bowel sounds, soft, + tenderness (mild left lower quadrant tenderness) Back: normal inspection, + left CVA tenderness Extremities/Musculoskelatal: normal inspection, no calf tenderness, no pedal edema Neurologic/Psych: alert, normal mood/affect, oriented x 3 Skin: normal color, warm/dry Hospital Course Left Sided Obstructing Ureteral Stone: Underwent cystoscopy left ureteroscopy laser lithotripsy basket stone extraction stent placement Patient presented with L flank pain x 2 says assoc with N/V; h/o multiple renal calculi. He is afebrile with leukocytosis -KUB + 17mm obstructing L ureteral calculus -UA uncollected; will check culture -Given IVF and Flomax -Toradol PRN pain -Pyridium post-operatively x 3 days -no post-op abx per urology -Reviewed Urology consult. Thanks for input. Acute Kidney Injury: Due to above. Resolving now. -Holding lisinopril and given IVF -monitor with prp daily and avoid nephrotoxic agents when able Diabetes Type II: Repeat HbA1c is 9.0. -Holding Januvia and Glimepiride which will be resumed after discharge. -Continue ISS -monitor Dyslipidemia: Continue Statin. DVT Prophylaxis: SCDs Code Status: FULL CODE Disposition: Discharge home later today. Follow up with Dr. Baltazar as per her recommendation. Total time spent on discharge = 38 minutes This includes examination of the patient, discharge planning, medication reconciliation, and communication with other providers. Discharge Instructions Discharge Goals Goal(s): Decrease discomfort, Improve function, Increase independence, Improve disease control, Improve nutritional status, Learn about illness, Diagnostic testing, Therapeutic intervention Activity Recommendations Activity Limitations: resume your previous activity Lifting Limitations: no more than 10 pounds Exercise/Sports Limitations: as tolerated May Resume Sexual Activity: after one week Shower/Bathe: no limitations Driving or Machine Use: no limitations . Instructions / Follow-Up Instructions / Follow-Up Take all the medications as directed. Monitor your blood sugar regularly Follow dietary precautions Drink lots of fluids Follow up with Dr. Baltazar as per her advice. Current Hospital Diet Patient's current hospital diet: Diabetes Type 2 Diet Discharge Diet Recommended Diet: AHA Diet (Heart Healthy), Diabetes Type 2 Diet Additional Copies To Duong Schultz D.O. Simmons, Jennifer ., MD
[2016-11-04 13:18] VITALS: BP 140/84; PULSE 67; TEMP 37.3; O2SAT 96
== END 2016-11-04 13:40 | disposition home or self-care (01) | DRG 669 ==
LOC: ENRESERVDT → ENRESERVTM → C.EDB 11:38 → C.MSW 14:12
PROVIDERS: ADMIT Hospitalist; ATTEND Emergency Medicine
PROC: 0T777DZ Dilation of Left Ureter with Intraluminal Device, Via Natural or Artificial Opening (ICD-10-PCS; principal; 2016-11-03 14:00)
PROC: 0TC78ZZ Extirpation of Matter from Left Ureter, Via Natural or Artificial Opening Endoscopic (ICD-10-PCS; principal; 2016-11-03 14:00)
DX: N20.1 Calculus of ureter (principal); N17.9 Acute kidney failure, unspecified; Z68.42 Body mass index [BMI] 45.0-49.9, adult; E11.9 Type 2 diabetes mellitus without complications; E78.5 Hyperlipidemia, unspecified; E66.9 Obesity, unspecified; Z87.442 Personal history of urinary calculi; Z79.82 Long term (current) use of aspirin; Z79.84 Long term (current) use of oral hypoglycemic drugs; Z79.899 Other long term (current) drug therapy; Z88.8 Allergy status to other drugs, medicaments and biological substances

== ENCOUNTER 2023-05-12 12:18 | Observation (INO) ==
[2023-05-12] MEDS ORDERED: ACETAMINOPHEN 1,000 MG/100 ML VIAL IV STA (12:27)
[2023-05-12] MEDS ORDERED: SODIUM CHLORIDE 0.9% 1000ML 1,000 ML IV ONE ×2 (12:27→13:29)
[2023-05-12] MEDS ORDERED: KETOROLAC TROMETHAMINE 15 MG/ML VIAL IV STA (12:27)
[2023-05-12 12:58] LABS: Basophils # (auto) 0.03 K/uL (0-0.2); Basophils % (auto) 0.2 %; Eosinophils # (auto) 0.01 K/uL (0-0.50); Eosinophils % (auto) 0.1 %; Hematocrit (blood only) 42.6 % (42.0-52.0); Hemoglobin 15.6 g/dl (14.0-18.0); Immature Granulocytes # (auto) 0.07 K/uL (0.01-0.20); Immature Granulocytes % (auto) 0.5 %; Lymphocytes # (auto) 1.91 K/uL (1.2-3.4); Lymphocytes % (auto) 14.4 %; Mean Corpuscular Hemoglobin 33.2 pg (25.0-34.0); Mean Corpuscular Hgb Conc 36.6 g/dL (32.0-36.0); Mean Corpuscular Volume 90.6 fL (80.0-100.0); Mean Platelet Volume 11.1 fL (9.4-12.4); Monocytes # (auto) 1.31 K/uL (0.11-0.59); Monocytes % (auto) 9.9 %; Neutrophils # (auto) 9.96 K/uL (1.40-6.50); Neutrophils % (auto) 74.9 %; Platelet Count 180 K/uL (130-400); RDW Coefficient of Variation 12.1 % (11.5-14.5); RDW Standard Deviation 40.3 fL (36.4-46.3); White Blood Count 13.29 K/ul (4.8-10.8)
[2023-05-12 13:08] LABS: Alanine Aminotransferase 22 U/L (7-52); Albumin Globulin Ratio 1.5 (0.9-2); Albumin Level 4.9 gm/dl (3.4-5.0); Alkaline Phosphatase 54 U/L (34-104); Anion Gap 13 (3-11); Aspartate Aminotransferase 26 U/L (13-39); BUN Creatinine Ratio 12.8 (10-20); Bilirubin,Total 1.8 mg/dl (0.2-1.0); Blood Urea Nitrogen 24 mg/dl (6-23); Carbon Dioxide 21 mmol/L (21-32); Chloride 103 mmol/L (98-107); Est GFR (African American) 44.6 ml/min; Est GFR (Non-African American) 38.5 ml/min; Globulin 3.2 gm/dl (2.5-4.0); Glucose 172 mg/dl (70-99(Fasting)); Lipase 21 U/L (11-82); Potassium 3.8 mmol/L (3.5-5.1); Sodium 137 mmol/L (136-145); Total Protein 8.1 gm/dl (6.0-8.3)
[2023-05-12] MEDS ORDERED: ONDANSETRON INJ 2 MG/ML 2 ML VIAL IV STA (13:29)
[2023-05-12] MEDS ORDERED: MoRPHine SULFATE 10 MG/ML CARP/VIAL IV STA (13:29)
--- NOTE | 2023-05-12 13:30 | Emergency Department Note ---
Impression & Plan Hydronephrosis due to obstruction of ureter, Ureterolithiasis, HEATHER (acute kidney injury) ED Provider Note NAME: LEYDA ZALDIVAR AGE: 57 SEX: M ARRIVES VIA: Walk-In INFORMANT: Patient ED PROVIDER(S): Joseph Aleman MD CHIEF COMPLAINT: Right flank pain, kidney stone. PLAN: Disposition: Admit MEDICAL DECISION MAKING: The patient is a pleasant 57-year-old gentleman with a past medical history of nephrolithiasis, diabetes, hypertension, hyperlipidemia who presents to the emergency department via walk-in, accompanied by his for evaluation of ongoing right flank pain in the setting of having onset of symptoms this past seen at [facility] evening and again yesterday for what was identified as a 4 mm obstructing ureteral stone at the UVJ. The patient felt improvement during his evaluations and was discharged with plan for outpatient follow-up however his pain returned again today with associated nausea and so presents to our facility for reevaluation. Patient denies any fevers, burning with urination, cough, congestion, chest pain, diarrhea. Patient reports he has had kidney stones in the past that did require interve ntion. On arrival to the emergency department patient is uncomfortable but no acute distress, afebrile with heart rate in the 90s and blood pressure 140s/80s and vital signs otherwise stable. He appears clinically dry. He has mild right flank and right lower quadrant discomfort without discrete tenderness. He appears clinically dry. WBC 13.2K, nonspecific. H/H and platelets within normal limits. Chemistry without metabolic acidosis though creatinine with mild HEATHER of 1.87. Total bili 1.8, nonspecific but direct bilirubin 0.2. AST and ALT and alk phos are normal. Lipase is not elevated. UA with trace ketones, 10-30 RBCs and otherwise no evidence of infection. CT of the and pelvis was performed and demonstrates right obstructing UVJ stone with associated hydroureteronephrosis. Note is made of interstitial and peripancreatic inflammatory stranding suggestive of mild acute uncomplicated pancreatitis however does not clinically correlate to the patient's symptoms at this time. Upon evaluation patient was feeling some improvement after IV fluid hydration, APAP, Toradol, morphine and Zofran. However his pain still was present to a degree where he agreed with plan for admission for further hydration for his renal insufficiency and pain control and urology consultation for possible intervention. Case was discussed with [facility]. Appreciate consultation and recommendations and agrees that may continue to monitor the patient's symptoms at this time and allow opportunity for stone passage but if still uncomfortable may consider procedure tomorrow morning and so patient should be maintained n.p.o. after midnight. Case was discussed with Dr. Nick [facility] hospitalist, who will evaluate the patient for admission. Triage Nursing notes reviewed and agree them. Prior/outside medical records reviewed Vital Signs: reviewed Differential diagnosis: Renal colic, UTI, appendicitis, diverticulitis, mesenteric ischemia, aortic pathology, infections, inflammatory bowel disease, PUD, biliary pathology, as well as other pathologies. ER treatment provided: See below. Diagnostics interpreted by me: Cardiac Monitoring: An order for continuous cardiac monitoring was placed and demonstrated normal sinus rhythm, 96 bpm, no ectopy. Laboratory studies: See below Imaging studies: See below Consultation(s): [facility] hospitalist. HPI: The patient is a pleasant 57-year-old gentleman with a past medical history of nephrolithiasis, diabetes, hypertension, hyperlipidemia who presents to the emergency department via walk-in, accompanied by his for evaluation of ongoing right flank pain in the setting of having onset of symptoms this past seen at [facility] evening and again yesterday for what was identified as a 4 mm obstructing ureteral stone at the UVJ. The patient felt improvement during his evaluations and was discharged with plan for outpatient follow-up however his pain returned again today with associated nausea and so presents to our facility for reevaluation. Patient denies any fevers, burning with urination, cough, congestion, chest pain, diarrhea. Patient reports he has had kidney stones in the past that did require in tervention. ROS: See above HPI for pertinent positives & negatives. A total of 10 systems reviewed and were otherwise negative. VITALS:See Below PHYSICAL EXAMINATION: GENERAL: Awake, alert, uncomfortable-appearing, in no distress, BMI 32.7 HENT: Normocephalic, atraumatic. Oropharynx with dry mucous membranes and other bang unremarkable. EYES: Normal conjunctiva. Sclera non-icteric. NECK: Supple. No nuchal rigidity. FROM. No JVD. RESPIRATORY: Clear to auscultation. CARDIAC: Regular rate, normal rhythm. Extremities warm and well perfused. Pulses equal. ABDOMEN: Soft, non-distended. Mild right flank and lower abdominal discomfort without discrete tenderness to palpation. No rebound or guarding. No masses. RECTAL: Deferred. MUSCULOSKELETAL: Chest examination reveals no tenderness. The back is symmetrical on inspection without obvious abnormality. There is no CVA tenderness to palpation. No joint edema. LOWER EXTREMITIES: Calves are equal size bilaterally and non-tender. No edema. No discoloration. NEURO: Normal sensorium. No sensory or motor deficits noted. SKIN: No rash or jaundice noted. Joseph Aleman MD Past Med/Surg History Medical History Diabetes mellitus, type II Dyslipidemia Kidney stone Renal calculi Surgical History H/O lithotripsy "2013" H/O wisdom tooth extraction Hx of colonoscopy Family History Mother Hypertension Father Heart disease Grandfather (Paternal) Diabetes Brother Heart disease Diabetes Colorectal cancer Social History Smoking Status: Never smoker Second Hand Exposure: No; Do You Dip or Chew Tobacco: No; Hx Alcohol Use: No Hx Substance Use: No Preferred Language: Croatian marital status: Current Living Situation: Spouse current occupational status: employed How many Children do You have: 1 Feels Safe at Home: Yes Do you think of yourself as: straight/heterosexual Gender Identity: Male Allergies Allergies Allergy/AdvReac Type Severity Reaction Status Date / Time simvastatin Allergy Mild . Verified 02/26/23 13:22 Home Meds Home Medications Medication Instructions Recorded Confirmed aspirin 81 mg tablet,delayed 81 mg PO DAILY 02/26/19 05/12/23 release empagliflozin 25 mg tablet 25 mg PO DAILY 02/26/19 05/12/23 (Jardiance) glimepiride 4 mg tablet 4 mg PO BID 02/26/19 05/12/23 ondansetron 4 mg disintegrating 4 mg PO Q8H PRN Nausea 05/12/23 05/12/23 tablet oxycodone 5 mg tablet 5 mg PO DIRECTED PRN Pain 05/12/23 05/12/23 semaglutide 1 mg/dose (4 mg/3 mL) See Rx Instructions .Route .COMPLEX 05/12/23 05/12/23 subcutaneous pen injector (Ozempic) tamsulosin 0.4 mg capsule 0.4 mg PO QAM 05/12/23 05/12/23 Previous Rx's Medication Instructions Recorded blood sugar diagnostic (Accu-Chek #100 ea 01/25/23 Jenni Plus test strips) lancets (Accu-Chek Fastclix Lancet #100 ea 01/25/23 Drum) cholecalciferol (vitamin D3) 25 25 mcg PO DAILY 3 months #90 caps 04/30/23 mcg (1,000 unit) capsule lisinopril 5 mg tablet 5 mg PO DAILY #90 tabs 04/30/23 potassium chloride 10 mEq 10 meq PO BID #180 caps 04/30/23 capsule,extended release pravastatin 10 mg tablet 10 mg PO DAILY #90 tabs 04/30/23 Results & Data (ED) Vital Signs Vital Signs - 24 hr 05/12/23 12:21 05/12/23 12:43 05/12/23 12:47 Temperature 36.8 C Temperature Source Temporal Artery Scan Pulse Rate 96 H Pulse Rate [Apical] 90 Respiratory Rate 18 20 Blood Pressure 147/88 H Blood Pressure Mean 107 Pulse Oximetry 99 97 97 Oxygen Delivery Method Room Air Room Air Room Air Sepsis Recent Fever Within 48 Hours No Sepsis New/Unexplained Change in Mental Status N/A Sepsis Action Taken by Nursing No Action Required 05/12/23 13:02 Temperature Temperature Source Pulse Rate 79 Pulse Rate [Apical] Respiratory Rate Blood Pressure Blood Pressure Mean Pulse Oximetry Oxygen Delivery Method Sepsis Recent Fever Within 48 Hours Sepsis New/Unexplained Change in Mental Status Sepsis Action Taken by Nursing Laboratory Data Attestation: I reviewed the patient's lab results. 05/12/23 Unknown 05/12/23 Unknown Lab Results 05/12/23 05/12/23 05/12/23 Range/Units 15:30 15:44 Unknown WBC 13.29 H (4.8-10.8) K/ul RBC 4.70 (4.70-6.10) M/uL Hgb 15.6 (14.0-18.0) g/dl Hct 42.6 (42.0-52.0) % MCV 90.6 (80.0-100.0) fL MCH 33.2 (25.0-34.0) pg MCHC 36.6 H (32.0-36.0) g/dL RDW Std Deviation 40.3 (36.4-46.3) fL RDW Coeff of Florinda 12.1 (11.5-14.5) % Plt Count 180 (130-400) K/uL MPV 11.1 (9.4-12.4) fL Immature Gran % (Auto) 0.5 % Neut % (Auto) 74.9 % Lymph % (Auto) 14.4 % King % (Auto) 9.9 % Eos % (Auto) 0.1 % Baso % (Auto) 0.2 % Neut # (Auto) 9.96 H (1.40-6.50) K/uL Lymph # (Auto) 1.91 (1.2-3.4) K/uL King # (Auto) 1.31 H (0.11-0.59) K/uL Eos # (Auto) 0.01 (0-0.50) K/uL Baso # (Auto) 0.03 (0-0.2) K/uL Immature Gran # (Auto) 0.07 (0.01-0.20) K/uL Sodium (136-145) mmol/L Potassium (3.5-5.1) mmol/L Chloride (98-107) mmol/L Carbon Dioxide (21-32) mmol/L Anion Gap (3-11) BUN (6-23) mg/dl Creatinine (0.6-1.4) mg/dl Est Cr Clr Drug Dosing Est GFR ( Amer) ml/min Est GFR (Non-Af Amer) ml/min BUN/Creatinine Ratio (10-20) Glucose (70-99(Fasting)) mg/dl Calcium (8.6-10.3) mg/dl Total Bilirubin (0.2-1.0) mg/dl Direct Bilirubin 0.2 (0-0.2) mg/dl AST (13-39) U/L ALT (7-52) U/L Alkaline Phosphatase (34-104) U/L Total Protein (6.0-8.3) gm/dl Albumin (3.4-5.0) gm/dl Globulin (2.5-4.0) gm/dl Albumin/Globulin Ratio (0.9-2) Lipase (11-82) U/L Urine Color Yellow Urine Appearance Clear (Clear) Urine pH 6.5 (4.5-7.5) Ur Specific Mingus 1.037 H (1.000-1.030) Urine Protein Negative (Negative) Urine Glucose (UA) 3+ H (Negative) Urine Ketones Trace H (Negative) Urine Blood 2+ H (Negative) Urine Nitrite Negative (Negative) Urine Bilirubin Negative (Negative) Urine Urobilinogen Negative (Negative) Ur Leukocyte Esterase Negative (Negative) Urine WBC (Auto) 1-5 (0-5) /hpf Urine RBC (Auto) 10-30 H (0-4) /hpf U Hyaline Cast (Auto) 1-5 (0-5) /lpf U Epithel Cells (Auto) 0-5 (0-5) /lpf Urine Bacteria (Auto) Negative (Negative) 05/12/23 Range/Units Unknown WBC (4.8-10.8) K/ul RBC (4.70-6.10) M/uL Hgb (14.0-18.0) g/dl Hct (42.0-52.0) % MCV (80.0-100.0) fL MCH (25.0-34.0) pg MCHC (32.0-36.0) g/dL RDW Std Deviation (36.4-46.3) fL RDW Coeff of Florinda (11.5-14.5) % Plt Count (130-400) K/uL MPV (9.4-12.4) fL Immature Gran % (Auto) % Neut % (Auto) % Lymph % (Auto) % King % (Auto) % Eos % (Auto) % Baso % (Auto) % Neut # (Auto) (1.40-6.50) K/uL Lymph # (Auto) (1.2-3.4) K/uL King # (Auto) (0.11-0.59) K/uL Eos # (Auto) (0-0.50) K/uL Baso # (Auto) (0-0.2) K/uL Immature Gran # (Auto) (0.01-0.20) K/uL Sodium 137 (136-145) mmol/L Potassium 3.8 (3.5-5.1) mmol/L Chloride 103 (98-107) mmol/L Carbon Dioxide 21 (21-32) mmol/L Anion Gap 13 H (3-11) BUN 24 H (6-23) mg/dl Creatinine 1.87 H (0.6-1.4) mg/dl Est Cr Clr Drug Dosing Not Reportable Est GFR ( Amer) 44.6 ml/min Est GFR (Non-Af Amer) 38.5 ml/min BUN/Creatinine Ratio 12.8 (10-20) Glucose 172 H (70-99(Fasting)) mg/dl Calcium 10.0 (8.6-10.3) mg/dl Total Bilirubin 1.8 H (0.2-1.0) mg/dl Direct Bilirubin (0-0.2) mg/dl AST 26 (13-39) U/L ALT 22 (7-52) U/L Alkaline Phosphatase 54 (34-104) U/L Total Protein 8.1 (6.0-8.3) gm/dl Albumin 4.9 (3.4-5.0) gm/dl Globulin 3.2 (2.5-4.0) gm/dl Albumin/Globulin Ratio 1.5 (0.9-2) Lipase 21 (11-82) U/L Urine Color Urine Appearance (Clear) Urine pH (4.5-7.5) Ur Specific Mingus (1.000-1.030) Urine Protein (Negative) Urine Glucose (UA) (Negative) Urine Ketones (Negative) Urine Blood (Negative) Urine Nitrite (Negative) Urine Bilirubin (Negative) Urine Urobilinogen (Negative) Ur Leukocyte Esterase (Negative) Urine WBC (Auto) (0-5) /hpf Urine RBC (Auto) (0-4) /hpf U Hyaline Cast (Auto) (0-5) /lpf U Epithel Cells (Auto) (0-5) /lpf Urine Bacteria (Auto) (Negative) Administered Medications Discontinued Medications Sodium Chloride (Nss 1000ml) 1,000 mls @ 999 mls/hr IV .Q1H1M ONE Stop: 05/12/23 13:27 Last Infusion: 05/12/23 14:39 Dose: 0 mls/hr Documented By: Admin: 05/12/23 12:38 Dose: 999 mls/hr Documented By: MICHAEL Acetaminophen (Ofirmev) 1,000 mg in 100 mls @ 400 mls/hr IV NOW STA Stop: 05/12/23 12:41 Last Infusion: 05/12/23 14:38 Dose: 0 mls/hr Documented By: Admin: 05/12/23 12:38 Dose: 400 mls/hr Documented By: MICHAEL Sodium Chloride (Nss 1000ml) 1,000 mls @ 999 mls/hr IV .Q1H1M ONE Stop: 05/12/23 14:29 Last Admin: 05/12/23 14:33 Dose: 999 mls/hr Documented By: Ioversol (Optiray 320 100ml) 92 ml IV ONCE ONE Stop: 05/12/23 14:17 Last Admin: 05/12/23 14:16 Dose: 92 ml Documented By: RAMU Ketorolac Tromethamine (Ketorolac Tromethamine 15 Mg/Ml Vial) 15 mg IV NOW STA Stop: 05/12/23 12:28 Last Admin: 05/12/23 12:38 Dose: 15 mg Documented By: MICHAEL Morphine Sulfate (Morphine Sulfate 10 Mg/Ml Carp/Vial) 6 mg IV NOW STA Stop: 05/12/23 13:30 Last Admin: 05/12/23 14:31 Dose: 6 mg Documented By: Ondansetron HCl (Ondansetron Inj 2 Mg/Ml 2 Ml Vial) 4 mg IV NOW STA Stop: 05/12/23 13:30 Last Admin: 05/12/23 14:32 Dose: 4 mg Documented By: Imaging Data Radiologist's Impression: Abdomen/Pelvis CT 05/12/23 13:[address] WITH IV CONTRAST CT DOSE: 1373.83 mGy.cm HISTORY: Acute right-sided flank pain in patient with history of kidney stones Right flank pain, kidney stone TECHNIQUE: Multiaxial CT images of the abdomen and pelvis were performed following the IV administration of 92 cc of Optiray, A dose lowering technique was utilized adhering to the principles of ALARA. COMPARISON STUDY: CT abdomen and pelvis 02/26/2019 FINDINGS: Clear lung bases. No free air. Unremarkable spleen, gallbladder and adrenal glands. Hepatic steatosis. Patency of the hepatic and portal veins. Interstitial and peripancreatic inflammatory stranding. No acute peripancreatic fluid collections. There is a 2.6 cm calculus of the mid inferior pole left kidney. There are a few subcentimeter calculus in the inferior pole right kidney measuring up to 4 mm. Mild right-sided hydroureteronephrosis with delayed nephrogram and reactive perinephric and periureteral stranding secondary to an obstructing 4 mm calculus located within the intramural portion of the right ureterovesicular junction. Urinary bladder wall thickening with partial distention. Prostatomegaly. Small fat filled left inguinal hernia. Atherosclerosis of the aorta. No lymphadenopathy. No bowel obstruction. Mild wall thickening of the duodenum, likely reactive secondary to the aforementioned pancreatic findings. Colonic diverticulosis. Normal appendix. Unremarkable soft tissues. No acute fracture. IMPRESSION: 1. Mild right-sided hydroureteronephrosis with delayed nephrogram secondary to an obstructing 4 mm calculus at the ureterovesicular junction. 2. Nonobstructive bilateral nephrolithiasis includes a 2.6 cm calculus within the left kidney. 3. Mild acute uncomplicated pancreatitis. 4. No bowel obstruction or pneumoperitoneum. 5. Hepatic steatosis. ACT 112: Negative or not required by law. The above report was generated using voice recognition software. It may contain grammatical, syntax or spelling errors. Electronically signed by: Jose Raul Skaggs M.D. 05/12/2023 2:54 PM Discharge Plan Visit Data Chief Complaint: Kidney Stone Stated Complaint: KIDNEY STONES, PAIN IN ABDOMEN ED Provider: Joseph Aleman Discharge Problem: Hydronephrosis due to obstruction of ureter, Ureterolithiasis, HEATHER (acute kidney injury) Forms Stand Alone Forms: My [facility] Prescriptions Prescriptions: No Action pravastatin 10 mg tablet 10 mg PO DAILY Qty: 90 3RF potassium chloride 10 mEq capsule, extended release 10 meq PO BID Qty: 180 3RF lisinopril 5 mg tablet 5 mg PO DAILY Qty: 90 3RF cholecalciferol (vitamin D3) 25 mcg (1,000 unit) capsule 25 mcg PO DAILY 90 Days Qty: 90 0RF (DME) Accu-Chek Jenni Plus test strp Strip See Rx Instructions .Route Qty: 100 1RF Rx Instructions: once daily (DME) lancets [Accu-Chek Fastclix Lancet Drum] Misc See Rx Instructions .Route Qty: 100 1RF Rx Instructions: As directed; once daily aspirin 81 mg Tablet,Delayed Release (Dr/Ec) 81 mg PO DAILY glimepiride 4 mg tablet 4 mg PO BID Jardiance 25 mg tablet 25 mg PO DAILY tamsulosin 0.4 mg capsule 0.4 mg PO QAM ondansetron 4 mg tablet,disintegrating 4 mg PO Q8H PRN (Reason: Nausea) oxycodone 5 mg tablet 5 mg PO DIRECTED PRN (Reason: Pain) Ozempic 1 mg/dose (4 mg/3 mL) pen injector See Rx Instructions .ROUTE .COMPLEX Rx Instructions: as directed Referrals Referrals: Elaina Etienne DO [Primary Care Provider] -
[2023-05-12] MEDS ORDERED: OPTIRAY 320 100ml IV ONE (14:16)
--- NOTE | 2023-05-12 14:57 | CT Scan Report ---
ABDOMEN AND PELVIS CT WITH IV CONTRAST CT DOSE: 1373.83 mGy.cm HISTORY: Acute right-sided flank pain in patient with history of kidney stones Right flank pain, kid stephany stone TECHNIQUE: Multiaxial CT images of the abdomen and pelvis were performed following the IV administrat ion of 92 cc of Optiray, A dose lowering technique was utilized adhering to the principles of ALARA. COMPARISON STUDY: CT abdomen and pelvis 02/26/2019 FINDINGS: Clear lung bases. No free air. Unremarkable spleen, gallbladder and adrenal glands. Hepatic steatosis. Patency of the hepatic and portal veins. Interstitial and peripancreatic inflammatory str anding. No acute peripancreatic fluid collections. There is a 2.6 cm calculus of the mid inferior pole left kidney. There are a few subcentimeter calcul us in the inferior pole right kidney measuring up to 4 mm. Mild right-sided hydroureteronephrosis wit h delayed nephrogram and reactive perinephric and periureteral stranding secondary to an obstructing 4 mm calculus located within the intramural portion of the right ureterovesicular junction. Urinary b ladder wall thickening with partial distention. Prostatomegaly. Small fat filled left inguinal hernia . Atherosclerosis of the aorta. No lymphadenopathy. No bowel obstruction. Mild wall thickening of the duodenum, likely reactive secondary to the aforemen tioned pancreatic findings. Colonic diverticulosis. Normal appendix. Unremarkable soft tissues. No ac annika fracture. IMPRESSION: 1. Mild right-sided hydroureteronephrosis with delayed nephrogram secondary to an obstructing 4 mm ca lculus at the ureterovesicular junction. 2. Nonobstructive bilateral nephrolithiasis includes a 2.6 cm calculus within the left kidney. 3. Mild acute uncomplicated pancreatitis. 4. No bowel obstruction or pneumoperitoneum. 5. Hepatic steatosis. ACT 112: Negative or not required by law. The above report was generated using voice recognition software. It may contain grammatical, syntax o r spelling errors. Electronically signed by: Jose Raul Skaggs M.D. 05/12/2023 2:54 PM
[2023-05-12] MEDS ORDERED: MoRPHine SULFATE 4 MG/ML 1 ML CARP\\VIAL IV PRN ×2 (15:36→17:31)
[2023-05-12] MEDS ORDERED: MoRPHine SULFATE 2 MG/ML CARP IV PRN ×2 (15:36→17:31)
[2023-05-12 16:16] LABS: Appearance Urine Clear (Clear); Bacteria Urine Automated Negative (Negative); Bilirubin Urine Negative (Negative); Blood Urine 2+ (Negative); Color Urine Yellow; Epithelial Cell Urine Auto 0-5 /lpf (0-5); Glucose Urine UA 3+ (Negative); Ketones Urine Trace (Negative); Leukocyte Esterase Urine Negative (Negative); Nitrite Urine Negative (Negative); Protein Urine Negative (Negative); Specific Gravity Urine 1.037 (1.000-1.030); Urobilinogen Urine Negative (Negative); pH Urine 6.5 (4.5-7.5)
--- NOTE | 2023-05-12 17:23 | History & Physical Report ---
Date of Service May 12, 2023 Assessment & Plan (1) Hydronephrosis due to obstruction of ureter: Plan: UVJ nephrolithiasis, hydronephrosis, HEATHER Baseline creatinine normal Creatinine 1.87 on admission. No potassium derangement CTA/P: 4 mm UVJ right obstructing calculus. Nonobstructive nephrolithiasis of the left kidney. Mild acute uncomplicated pancreatitis. Hepatic steatosis Continue IV FM, Flomax Urology consulted, anticipate potential surgical intervention a.m. 05/13 Type II DM Glimepiride held Semaglutide held. Of note rare cases of pancreatitis reported while on semaglutide. Recently increased from 0.5 to 1.0. Recommend holding this and switching to alternative Jardiance held Basal bolus weight-based Goal BSG [id number], dose reduce Lantus by 30% while n.p.o. Hypertension Lisinopril held for HEATHER Continue aspirin Hyperlipidemia Continue pravastatin Evidence of pancreatitis on CT Mild acute uncomplicated pancreatitis by CT, lipase is normal N.p.o. Clinically has not had pain with meals or clinical symptoms of pancreatitis. Coincidentally did recently increase semaglutide as noted above Pain control as above DVT PPx: SCDs Diet: NPO, IVFM CODE: Full Dispo: Med/Surg (2) HEATHER (acute kidney injury): (3) Diabetes mellitus, type II: (4) Dyslipidemia: History of Present Illness Primary Care Provider: DO Elier Comer is a 57-year-old male with history of type II DM and renal calculi who presents with flank pain and is found to have a 4 mm UVJ obstructing calculus with an HEATHER. Patient has been recommended for medical admission and observation, surgical intervention morning of 05/13 if not improving. R flank pain since last . Was seen in [place] evening and had two bladder stones 4mm and 2mm. Went home on flomax. Passed one stone. Continued to have severe pain yesterday, went back for 6 hours with no change. Went home then this morning pain was 10/10, came here for additional care No fevers, chills +R flank pain. Currently 4/10. No chest pain or chest pressure Has a history of kidney stones, 4-5 years ago had a 17mm+ stone destroyed and extracted No upper quadrant pain. Does not drink etoh. No tobacco use. Reports cholesterol has been well controlled on his statin. Medical History: Reviewed Medications: Reviewed Surgical History: Reviewed Family history: Reviewed Allergies: Reviewed Social History: Reviewed Code Status: Full Allergies Allergy/AdvReac Type Severity Reaction Status Date / Time simvastatin Allergy Mild . Verified 02/26/23 13:22 Home Medications Medication Instructions Recorded Confirmed Type aspirin 81 mg tablet,delayed 81 mg PO DAILY 02/26/19 05/12/23 History release empagliflozin 25 mg tablet 25 mg PO DAILY 02/26/19 05/12/23 History (Jardiance) glimepiride 4 mg tablet 4 mg PO BID 02/26/19 05/12/23 History blood sugar diagnostic (Accu-Chek #100 ea 01/25/23 02/26/23 Rx Jenni Plus test strips) lancets (Accu-Chek Fastclix Lancet #100 ea 01/25/23 02/26/23 Rx Drum) cholecalciferol (vitamin D3) 25 25 mcg PO DAILY 3 months #90 caps 04/30/23 05/12/23 Rx mcg (1,000 unit) capsule lisinopril 5 mg tablet 5 mg PO DAILY #90 tabs 04/30/23 05/12/23 Rx potassium chloride 10 mEq 10 meq PO BID #180 caps 04/30/23 05/12/23 Rx capsule,extended release pravastatin 10 mg tablet 10 mg PO DAILY #90 tabs 04/30/23 05/12/23 Rx ondansetron 4 mg disintegrating 4 mg PO Q8H PRN Nausea 05/12/23 05/12/23 History tablet oxycodone 5 mg tablet 5 mg PO DIRECTED PRN Pain 05/12/23 05/12/23 History semaglutide 1 mg/dose (4 mg/3 mL) See Rx Instructions .Route .COMPLEX 05/12/23 05/12/23 History subcutaneous pen injector (Ozempic) tamsulosin 0.4 mg capsule 0.4 mg PO QAM 05/12/23 05/12/23 History Past Med/Surg History Medical History Diabetes mellitus, type II Dyslipidemia Kidney stone Renal calculi Surgical History H/O lithotripsy "2013" H/O wisdom tooth extraction Hx of colonoscopy Family History Mother Hypertension Father Heart disease Grandfather (Paternal) Diabetes Brother Heart disease Diabetes Colorectal cancer Social History Smoking Status: Never smoker Second Hand Exposure: No; Do You Dip or Chew Tobacco: No; Hx Alcohol Use: No Hx Substance Use: No Preferred Language: Spanish marital status: Current Living Situation: Spouse current occupational status: employed How many Children do You have: 1 Feels Safe at Home: Yes Do you think of yourself as: straight/heterosexual Gender Identity: Male Physical Exam Physical Exam: General: A&Ox3. NAD. Cooperative. HEENT: Atraumatic, normocephalic. Pulm: CTAB A&P. -wheezes, -rales, -rhonchi. Symmetrical chest rise. No increased work of breathing. No respiratory distress. Cardiac: RRR, -mrg. Radial pulses intact and symmetrical. Abdominal:Mild RLQ TTP. BS present. No rebound/guarding Results & Data Results & Data Vital Signs (Past 12 Hours) Vital Signs Temp Pulse Pulse Resp BP Pulse Ox O2 Del Method 05/12/23 13:02 79 05/12/23 12:47 90 20 97 Room Air 05/12/23 12:43 97 Room Air 05/12/23 12:21 36.8 C 96 H 18 147/88 H 99 Room Air PG Care Time/CCT Total # of Minutes Spent Total Time Spent with Patient: Total time spent is greater than 50% in coordination of care (as documented) at patient's floor/unit and/or counseling patient: Coding Level of Care Code 91287 INT INP/OBS CARE 2/55MIN Diagnoses Hydronephrosis due to obstruction of ureter N13.1 HEATHER (acute kidney injury) N17.9 Diabetes mellitus, type II E11.9 Dyslipidemia E78.5
[2023-05-12] MEDS ORDERED: ACETAMINOPHEN 1,000 MG/100 ML VIAL IV PRN (17:30)
[2023-05-12] MEDS ORDERED: CARBOHYDRATES FOR HYPOGLYCEMIA PO PRN (17:34)
[2023-05-12] MEDS ORDERED: GLUCOSE 10 TAB/TUBE PO PRN (17:34)
[2023-05-12] MEDS ORDERED: GLUCOSE 40% GEL 15 GM TUBE PO PRN (17:34)
[2023-05-12] MEDS ORDERED: GLUCAGON FOR INJ 1 MG VIAL SQ PRN (17:34)
[2023-05-12] MEDS ORDERED: DEXTROSE 50% 50 ML SYRINGE IV PRN (17:34)
[2023-05-12] MEDS ORDERED: MoRPHine SULFATE 4 MG/ML 1 ML CARP\\VIAL ONE (17:59)
[2023-05-12] MEDS ORDERED: ONDANSETRON INJ 2 MG/ML 2 ML VIAL ONE (18:00)
[2023-05-12] MEDS ORDERED: MoRPHine SULFATE 2 MG/ML CARP ONE (18:00)
[2023-05-12] MEDS: LACTATED RINGER'S 1,000 ML IV SCH ×2 (18:04→23:06)
[2023-05-12] MEDS ORDERED: ONDANSETRON INJ 2 MG/ML 2 ML VIAL IV PRN (20:41)
[2023-05-12] MEDS ORDERED: INSULIN ASPART PER UNIT CHARGE SC SCH (21:00)
[2023-05-12] MEDS ORDERED: PROMETHAZINE HCL 12.5 MG in SODIUM CHLORIDE 0.9% 50 ML IV STA (22:53)
[2023-05-13] MEDS ORDERED: Nursing to Pharmacy Communication SCH ×2 (03:15→12:15)
[2023-05-13] MEDS: LACTATED RINGER'S 1,000 ML IV SCH ×2 (06:10→16:56)
[2023-05-13] MEDS: INSULIN ASPART PER UNIT CHARGE SC SCH ×2 (06:20→12:47)
[2023-05-13] MEDS ORDERED: DEXTROSE 50% 50 ML SYRINGE IV ONE (06:25)
[2023-05-13 07:00] LABS: BUN Creatinine Ratio 15.1 (10-20); Calcium 8.3 mg/dl (8.6-10.3); Creatinine Clr Calc Pharmacy 62.1 ml/min; Est GFR (African American) 56.9 ml/min; Est GFR (Non-African American) 49.1 ml/min; Potassium 3.8 mmol/L (3.5-5.1)
[2023-05-13] MEDS ORDERED: ceFAZolin 2000MG 2,000 MG/15 ML SYR IV SCH (08:08)
--- NOTE | 2023-05-13 08:08 | Urology Consultation ---
Date of Consultation May 13, 2023 Assessment & Plan (1) Ureterolithiasis: (2) Hydronephrosis due to obstruction of ureter: Plan 58-year-old male with a distal right obstructing ureteral calculus Discussed options including medical expulsive therapy versus going to the OR for cystoscopy with right stent placement and possible stone treatment although nothing guaranteed. Due to poor pain tolerance, patient would like procedure Plan to go to the OR today for cystoscopy, right retrograde pyelogram, right ureteral stent placement, possible ureteroscopy with laser lithotripsy and basket stone extraction. Explained that I would attempt to treat his stone but did not make any promises and he understands he may need a second procedure down the road Consent obtained, patient marked Ancef to the OR Keep n.p.o. Keep straining urine in the event that he passes stone prior to planned procedure History of Present Illness Reason for Consultation: Right urolithiasis Attending Physician: Barbara Her MD History of Present Illness 58-year-old male with a small distal right ureteral calculus who presented the emergency department yesterday due to pain. He had previously been to [facility] [address] twice for this and was given pain medication. He was afebrile with stable vitals. Labs showed a mild leukocytosis of 13.2, creatinine of 1.87 and a urinalysis that was negative outside of microscopic hematuria. I independently reviewed a CT scan of the abdomen and pelvis which shows punctate stones in the right kidney and mild left hydroureteronephrosis with a 3 to 4 mm right UVJ stone. There is a large left lower pole nonobstructing stone. His pain is better controlled but he denies passage of the stone. He does have a history of nephrolithiasis and has had surgery before with an outside urologist. He has tolerated stents well in the past. Allergies Allergy/AdvReac Type Severity Reaction Status Date / Time simvastatin Allergy Mild . Verified 02/26/23 13:22 Home Medications Medication Instructions Recorded Confirmed Type aspirin 81 mg tablet,delayed 81 mg PO DAILY 02/26/19 05/12/23 History release empagliflozin 25 mg tablet 25 mg PO DAILY 02/26/19 05/12/23 History (Jardiance) glimepiride 4 mg tablet 4 mg PO BID 02/26/19 05/12/23 History blood sugar diagnostic (Accu-Chek #100 ea 01/25/23 02/26/23 Rx Jenni Plus test strips) lancets (Accu-Chek Fastclix Lancet #100 ea 01/25/23 02/26/23 Rx Drum) cholecalciferol (vitamin D3) 25 25 mcg PO DAILY 3 months #90 caps 04/30/23 05/12/23 Rx mcg (1,000 unit) capsule lisinopril 5 mg tablet 5 mg PO DAILY #90 tabs 04/30/23 05/12/23 Rx potassium chloride 10 mEq 10 meq PO BID #180 caps 04/30/23 05/12/23 Rx capsule,extended release pravastatin 10 mg tablet 10 mg PO DAILY #90 tabs 04/30/23 05/12/23 Rx ondansetron 4 mg disintegrating 4 mg PO Q8H PRN Nausea 05/12/23 05/12/23 History tablet oxycodone 5 mg tablet 5 mg PO DIRECTED PRN Pain 05/12/23 05/12/23 History semaglutide 1 mg/dose (4 mg/3 mL) See Rx Instructions .Route .COMPLEX 05/12/23 05/12/23 History subcutaneous pen injector (Ozempic) tamsulosin 0.4 mg capsule 0.4 mg PO QAM 05/12/23 05/12/23 History Patient History Medical History Diabetes mellitus, type II Dyslipidemia Kidney stone Renal calculi Surgical History H/O lithotripsy "L 2013" H/O wisdom tooth extraction Hx of colonoscopy Family History Mother Hypertension Father Heart disease Grandfather (Paternal) Diabetes Brother Heart disease Diabetes Colorectal cancer Social History Smoking Status: Never smoker Second Hand Exposure: No; Do You Dip or Chew Tobacco: No; Hx Alcohol Use: No Hx Substance Use: No Preferred Language: Lao Communication Ability: Effective 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 Beliefs That Will Affect Care: None marital status: Current Living Situation: Spouse current occupational status: employed How many Children do You have: 1 Other Information That Helps Us Care for You: No Feels Safe at Home: Yes Safety Concerns: Feels Safe At This Time Do you think of yourself as: straight/heterosexual Gender Identity: Male Assistive Devices: Glasses Review of Systems Review of Systems: 14 point review of systems negative outside of what is listed above in HPI Physical Exam Physical Exam: General: Alert and oriented, no acute distress HEENT: Normocephalic, mucous membranes moist Pulmonary: Nonlabored respirations Abdomen: Nondistended Extremities: Moves all 4 spontaneously Neuro: No gross deficits Skin: Warm, dry, no rashes noted Results & Data Vital Signs (Past 12 Hours) Vital Signs Temp Pulse Pulse Resp BP BP Pulse Ox 05/13/23 07:00 36.8 C 67 18 149/63 H 98 05/12/23 22:33 36.5 C 70 16 166/82 H 98 05/12/23 22:15 74 18 155/86 H 98 O2 Del Method 05/13/23 07:00 Room Air 05/12/23 22:33 Room Air 05/12/23 22:15 Room Air PG Care Time/CCT Total # of Minutes Spent Total Time Spent with Patient: Total time spent is greater than 50% in coordination of care (as documented) at patient's floor/unit and/or counseling patient: Coding Level of Care Code 23818 IN/OBS CONSULT LVL 3,45M Diagnoses Ureterolithiasis N20.1 Hydronephrosis due to obstruction of ureter N13.1
[2023-05-13 08:11] LABS: Basophils # (auto) 0.03 K/uL (0-0.2); Basophils % (auto) 0.3 %; Eosinophils # (auto) 0.06 K/uL (0-0.50); Eosinophils % (auto) 0.7 %; Hematocrit (blood only) 35.8 % (42.0-52.0); Hemoglobin 12.4 g/dl (14.0-18.0); Immature Granulocytes # (auto) 0.03 K/uL (0.01-0.20); Immature Granulocytes % (auto) 0.3 %; Lymphocytes # (auto) 1.79 K/uL (1.2-3.4); Lymphocytes % (auto) 19.5 %; Mean Corpuscular Hemoglobin 32.7 pg (25.0-34.0); Mean Corpuscular Hgb Conc 34.6 g/dL (32.0-36.0); Mean Corpuscular Volume 94.5 fL (80.0-100.0); Mean Platelet Volume 11.4 fL (9.4-12.4); Monocytes # (auto) 0.93 K/uL (0.11-0.59); Monocytes % (auto) 10.2 %; Neutrophils # (auto) 6.32 K/uL (1.40-6.50); Platelet Count 138 K/uL (130-400); RDW Coefficient of Variation 12.6 % (11.5-14.5); RDW Standard Deviation 43.7 fL (36.4-46.3); Red Blood Count 3.79 M/uL (4.70-6.10); White Blood Count 9.16 K/ul (4.8-10.8)
[2023-05-13] MEDS ORDERED: TAMSULOSIN HCL 0.4 MG CAP PO SCH (09:00)
[2023-05-13] MEDS ORDERED: CHOLECALCIFEROL 1,000 UNITS 25 MCG TAB PO SCH (09:00)
[2023-05-13] MEDS ORDERED: ONDANSETRON INJ 2 MG/ML 2 ML VIAL ONE (09:07)
[2023-05-13] MEDS ORDERED: LIDOCAINE 2% 2 ML VIAL/AMP(20MG/ML) INFIL ONE (09:07)
[2023-05-13] MEDS ORDERED: PROPOFOL IV EMULSION 10 MG/ML 20 ML VIAL IV ONE (09:07)
[2023-05-13] MEDS ORDERED: MIDAZOLAM HCL 1 MG/ML 2ML VIAL ONE (09:07)
[2023-05-13] MEDS ORDERED: DEXAMETHASONE SOD INJ 4 MG/ML VIAL ONE (09:07)
[2023-05-13] MEDS ORDERED: fentaNYL citrate PF 100 MCG/2 ML VIAL ONE (09:07)
--- NOTE | 2023-05-13 09:16 | Anesthesiology Consultation ---
Date of Service May 13, 2023 Assessment & Plan ASA ASA3 Proposed Anesthesia Anesthesia Type: MAC Risk / Benefits Reviewed With: PT / POA / Parent / Guardian, Accepts Plan and Informed Consent Obtained History Surgery Operation Date: 05/13/23 08:25 Proposed Procedures p Cystoscopy, Retrograde pyelogram, possible Laser, Right Ureteral Stent Insertion(Right) - Jorge Grajeda MD Height/Weight Height: 5 ft 10 in Weight: 103 kg Allergies Allergy/AdvReac Type Severity Reaction Status Date / Time simvastatin Allergy Mild . Verified 02/26/23 13:22 Medications Home Medications Medication Instructions Recorded Confirmed Last Taken aspirin 81 mg tablet,delayed 81 mg PO DAILY 02/26/19 05/12/23 Unknown release empagliflozin 25 mg tablet 25 mg PO DAILY 02/26/19 05/12/23 Unknown (Jardiance) glimepiride 4 mg tablet 4 mg PO BID 02/26/19 05/12/23 Unknown blood sugar diagnostic (Accu-Chek #100 ea 01/25/23 02/26/23 Unknown Jenni Plus test strips) lancets (Accu-Chek Fastclix Lancet #100 ea 01/25/23 02/26/23 Unknown Drum) cholecalciferol (vitamin D3) 25 25 mcg PO DAILY 3 months #90 caps 04/30/23 05/12/23 Unknown mcg (1,000 unit) capsule lisinopril 5 mg tablet 5 mg PO DAILY #90 tabs 04/30/23 05/12/23 Unknown potassium chloride 10 mEq 10 meq PO BID #180 caps 04/30/23 05/12/23 Unknown capsule,extended release pravastatin 10 mg tablet 10 mg PO DAILY #90 tabs 04/30/23 05/12/23 Unknown ondansetron 4 mg disintegrating 4 mg PO Q8H PRN Nausea 05/12/23 05/12/23 Unknown tablet oxycodone 5 mg tablet 5 mg PO DIRECTED PRN Pain 05/12/23 05/12/23 Unknown semaglutide 1 mg/dose (4 mg/3 mL) See Rx Instructions .Route .COMPLEX 05/12/23 05/12/23 Unknown subcutaneous pen injector (Ozempic) tamsulosin 0.4 mg capsule 0.4 mg PO QAM 05/12/23 05/12/23 Unknown Active Medications Generic Name Dose Route Start Last Admin Trade Name Isaiah PRN Reason Stop Dose Admin Lactated Ringer's 1,000 mls @ 125 mls/hr 05/12/23 15:45 05/13/23 06:10 Lr IV 06/11/23 15:44 125 mls/hr .Q8H JANETTE Administration Insulin Aspart 0 units 05/13/23 06:00 05/13/23 06:20 Insulin Aspart Per Unit Charge SC 06/12/23 05:59 Not Given Q6 JANETTE Morphine Sulfate 4 mg 05/12/23 17:31 05/12/23 21:42 Morphine Sulfate 4 Mg/Ml 1 Ml Carp\\Vial IV 05/26/23 15:35 4 mg Q3H PRN Administration Severe Pain (Rating 7,8,9,10) Ondansetron HCl 4 mg 05/12/23 20:41 05/12/23 21:40 Ondansetron Inj 2 Mg/Ml 2 Ml Vial IV 06/11/23 20:40 4 mg Q6H PRN Administration Nausea NPO Date Last Intake of Fluids: 05/13/23 Time Last Intake of Fluids: 06:00 Date Last Intake of Solids: 05/12/23 Time Last Intake of Solids: 08:00 Past Medical History Medical History Diabetes mellitus, type II Dyslipidemia Kidney stone Renal calculi Exercise / Class Metabolic Activity II 4-5 Yardwork/Stairs/Walk up hill Past Family History Family History Mother Hypertension Father Heart disease Grandfather (Paternal) Diabetes Brother Heart disease Diabetes Colorectal cancer Past Surgical History Surgical History H/O lithotripsy "L side 2013" H/O wisdom tooth extraction Hx of colonoscopy Past Anesthesia History No Hx of Anesthesia Complications and No Family Hx of Anesthesia Complications History of PONV No Hx of PONV and No Hx of Motion Sickness Social History Smoking Status: Never smoker Do You Dip or Chew Tobacco: No Hx Alcohol Use: No Hx Substance Use: No substance use type: does not use Review of Systems denies fever/cough/ colds/ chest pain/ SOB/ FREDA denies FREDA Physical Exam Vital Signs Last Vital Signs Temp 36.8 C 05/13/23 07:00 Pulse 67 05/13/23 07:00 Resp 18 05/13/23 07:00 BP 149/63 H 05/13/23 07:00 Pulse Ox 98 05/13/23 07:00 O2 Del Method Room Air 05/13/23 07:00 ENMT Mouth: no TMJ abnormality and no dentition abnormality Thyromental Distance: > or= 3.5 Finger Breadths Mallampati Class: II Neck neck extension not limited Respiratory normal respiratory effort; no respiratory distress Auscultation: lungs clear to auscultation bilaterally Cardiovascular Rate/Rhythm: regular rate and regular rhythm Neurologic moves all extremities Psychiatric Orientation: alert and oriented x 3 Testing Laboratory Results 05/13/23 05:51 05/13/23 05:51 Urine Color Yellow 05/12/23 15:30 Urine Appearance Clear (Clear) 05/12/23 15:30 Urine pH 6.5 (4.5-7.5) 05/12/23 15:30 Ur Specific [place] 1.037 (1.000-1.030) H 05/12/23 15:30 Urine Protein Negative (Negative) 05/12/23 15:30 Urine Glucose (UA) 3+ (Negative) H 05/12/23 15:30 Urine Ketones Trace (Negative) H 05/12/23 15:30 Urine Nitrite Negative (Negative) 05/12/23 15:30 Ur Leukocyte Esterase Negative (Negative) 05/12/23 15:30 Urine WBC (Auto) 1-5 /hpf (0-5) 05/12/23 15:30 Urine RBC (Auto) 10-30 /hpf (0-4) H 05/12/23 15:30 U Hyaline Cast (Auto) 1-5 /lpf (0-5) 05/12/23 15:30 U Epithel Cells (Auto) 0-5 /lpf (0-5) 05/12/23 15:30 Urine Bacteria (Auto) Negative (Negative) 05/12/23 15:30 05/13/23 05/13/23 06:55 06:10 POC Glucose 157 H 73
[2023-05-13] MEDS ORDERED: ePHEDrine sulfate 50 MG/ML AMP IV PRN (09:17)
[2023-05-13] MEDS ORDERED: fentaNYL citrate PF 100 MCG/2 ML VIAL IV PRN (09:17)
[2023-05-13] MEDS ORDERED: ONDANSETRON INJ 2 MG/ML 2 ML VIAL IV PRN (09:17)
[2023-05-13] MEDS ORDERED: ATROPINE SULFATE 0.1 MG/ML 10ML SYR IV PRN (09:17)
[2023-05-13] MEDS ORDERED: DIATRIZOATE MEGLUMINE 30% 100ML VIAL INSTIL ONE (10:07)
--- NOTE | 2023-05-13 10:08 | Post Operative Brief Note ---
PG Immediate Post Op with CF Date of Surgery May 13, 2023 Pre & Post Diagnosis Operation Date: 05/13/23 08:25 Pre-Op Diagnosis: Ureterolithiasis, Hydronephrosis due to obstruction of ureter Post-Op Diagnosis: Ureterolithiasis, Hydronephrosis due to obstruction of ureter I identified the patient and participated in the time-out.: Yes Procedure Operation Date: 05/13/23 08:25 Actual Procedures p Cystoscopy, Right Retrograde pyelogram, Right ureteroscopy, Laser, Right Ureteral Stent Insertion(Right) - Jorge Grajeda MD Surgeon Jorge Grajeda MD Supervisor [employer] None Estimated Blood Loss 5 Findings See Below Distal ureteral stone and passed in the bladder. Ureteroscopy revealed no further stones. Pyeloscopy revealed several small stones that were dusted into passable fragments. Retrograde showed no extravasation. Stent in appropriate position Specimens Specimen Description: No specimen per surgeon Anesthesia Type General Complications none
--- NOTE | 2023-05-13 10:09 | Operative Report ---
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 Ureteroscopy revealed no further stones. Pyeloscopy revealed several small stones that were dusted into passable fragments. Retrograde showed no extravasation. Stent in appropriate position. Specimens None Drains 6 Stateless by 28 cm right ureteral stent with extraction string taped to penis Anesthesia Type General Complications none Indications 58-year-old male with a small distal right obstructing stone who has had several emergency department presentations. He was admitted for pain control. No concern for infection. Discussed options and patient requested stent placement with possible stone treatment. Description of Procedure After informed consent was obtained, the patient was transported to the operative suite. General anesthesia was induced. They were placed in dorsal lithotomy position and prepped and draped in sterile fashion. They received preoperative Ancef. An appropriate surgical timeout was performed. 22 Stateless rigid scope was inserted per urethra into the bladder. A small distal stone had passed into the bladder. Because a CT scan did show some nonobstructing stones I elected to treat these at this time. I advanced a sensor wire in the upper pole of the kidney and confirmed this fluoroscopically. I advanced a semirigid ureteroscope into the distal ureter to ensure there were no other stones. The ureter was clear. I remove the semirigid ureteroscope and freehanded flexible ureteroscope into the kidney. There were several 2 to 3 cm stones in the mid and lower pole. Using a 272 m laser fiber under dusting settings, I dusted these into passable pieces. Retrograde pyelogram was shot which showed no extravasation or filling defects. Flexible ureteroscope was removed and there were no stones in the ureter. I then attempted to place a 6 Stateless by 26 cm right ureteral stent but this was too short. I swapped this out to a 6 Stateless by 28 cm stent and deployed this with a good proximal coil in the kidney confirmed fluoroscopically and a good distal coil in the bladder confirmed fluoroscopically. Bladder was left full and scope was removed. String was taped to the penis using benzoin and a Tegaderm. This concluded the end of the case. All counts correct at the end of the case. I was present scrubbed and actively participated for the entirety of the procedure. Patient can remove his stent on 05/15/2023 I attest to the content of the Intraoperative Record and any orders documented therein. Any exceptions are noted below.
--- NOTE | 2023-05-13 10:17 | Fluoroscopy Report ---
FL retrograde includes kub CLINICAL HISTORY: RT SIDE RETROGRADE COMPARISON STUDY: Abdomen and pelvis CT 05/12/2023. FLUOROSCOPY TIME: 27 seconds FLUOROSCOPY IMAGES: 3 Ka,r: 9.8 mGy FINDINGS: Retrograde opacification of the right renal collecting system followed by placement of a ri ght ureteral stent. The ureteral stent appears in good position. IMPRESSION: Fluoroscopic assistance as above. ACT 112: Negative or not required by law. Electronically signed by: Andrews Walters M.D. 05/13/2023 10:16 AM
--- NOTE | 2023-05-13 11:56 | Anesthesiology Progress Note ---
Date of Service May 13, 2023 Anesthesia Post Procedure Vital Signs Vital Signs: Temp Pulse Pulse Pulse Resp BP BP 05/13/23 11:45 36.5 C 62 18 146/78 H 05/13/23 11:17 36.5 C 62 14 157/82 H 05/13/23 10:30 65 16 127/69 05/13/23 11:00 36.9 C 63 20 153/45 H 05/13/23 10:50 70 20 147/86 H 05/13/23 10:40 69 20 140/75 05/13/23 10:20 63 14 103/57 L 05/13/23 10:19 36.4 C L 68 12 102/55 L 05/13/23 07:00 36.8 C 67 18 149/63 H 05/12/23 22:33 36.5 C 70 16 166/82 H 05/12/23 22:15 74 18 155/86 H 05/12/23 19:44 68 18 159/85 H 05/12/23 13:02 79 05/12/23 12:47 90 20 05/12/23 12:43 05/12/23 12:21 36.8 C 96 H 18 147/88 H Pulse Ox O2 Del Method O2 Flow Rate 05/13/23 11:45 99 Room Air 05/13/23 11:17 100 Room Air 05/13/23 10:30 100 Room Air 05/13/23 11:00 100 Room Air 05/13/23 10:50 100 Room Air 05/13/23 10:40 98 Room Air 05/13/23 10:20 100 Oxymask 6 05/13/23 10:19 99 Oxymask 6 05/13/23 07:00 98 Room Air 05/12/23 22:33 98 Room Air 05/12/23 22:15 98 Room Air 05/12/23 19:44 96 05/12/23 13:02 05/12/23 12:47 97 Room Air 05/12/23 12:43 97 Room Air 05/12/23 12:21 99 Room Air Pain Intensity Right Flank: Pain Intensity: 4 Transfer of Care Handoff Completed per policy Notes Mental Status: alert / awake / arousable and participated in evaluation Patient Amnestic to Procedure: Yes Nausea / Vomiting: adequately controlled Pain: adequately controlled Airway Patency, RR, SpO2: stable & adequate BP & HR: stable & adequate Hydration State: stable & adequate Anesthetic Complications: no major complications apparent and Pt Satisfied with anesthetic care
[2023-05-13] MEDS ORDERED: INSULIN ASPART PER UNIT CHARGE SC ONE (12:45)
[2023-05-13] MEDS ORDERED: ONDANSETRON INJ 2 MG/ML 2 ML VIAL IV STA (13:34)
--- NOTE | 2023-05-13 13:36 | Discharge Summary ---
Discharge Summary Date of Service May 13, 2023 Notes For Next Care Provider Check BMP in 1 week Medication Changes From Visit Oxybutynin prn Pyridium prn HOLD lisinopril and potassium until renal function returns to normal STOP Ozempic Admission HPI Per Admitting Provider Elier is a 57-year-old male with history of type II DM and renal calculi who p resents with flank pain and is found to have a 4 mm UVJ obstructing calculus with an HEATHER. Patient has been recommended for medical admission and observation, surgical intervention morning of 05/13 if not improving. R flank pain since last . Was seen in [place] evening and had two bladder stones 4mm and 2mm. Went home on flomax. Passed one stone. Continued to have severe pain yesterday, went back for 6 hours with no change. Went home then this morning pain was 10/10, came here for additional care No fevers, chills +R flank pain. Currently 4/10. No chest pain or chest pressure Has a history of kidney stones, 4-5 years ago had a 17mm+ stone destroyed and extracted No upper quadrant pain. Does not drink etoh. No tobacco use. Reports cholesterol has been well controlled on his statin. Medical History: Reviewed Medications: Reviewed Surgical History: Reviewed Family history: Reviewed Allergies: Reviewed Social History: Reviewed Code Status: Full Principal Dx & Hospital Course #1 = Principal Diagnosis (1) Hydronephrosis due to obstruction of ureter: UVJ nephrolithiasis, hydronephrosis, HEATHER Baseline creatinine normal Creatinine 1.87 on admission. No potassium derangement CTA/P: 4 mm UVJ right obstructing calculus. Nonobstructive nephrolithiasis of the left kidney. Mild acute uncomplicated pancreatitis. Hepatic steatosis Continue IV FM, Flomax Urology consulted, anticipate potential surgical intervention a.m. 05/13 Type II DM Glimepiride held Semaglutide held. Of note rare cases of pancreatitis reported while on semaglutide. Recently increased from 0.5 to 1.0. Recommend holding this and switching to alternative Jardiance held Basal bolus weight-based Goal BSG [id number], dose reduce Lantus by 30% while n.p.o. Hypertension Lisinopril held for HEATHER Continue aspirin Hyperlipidemia Continue pravastatin Evidence of pancreatitis on CT Mild acute uncomplicated pancreatitis by CT, lipase is normal N.p.o. Clinically has not had pain with meals or clinical symptoms of pancreatitis. Coincidentally did recently increase semaglutide as noted above Pain control as above DVT PPx: SCDs Diet: NPO, IVFM CODE: Full Dispo: Med/Surg (2) HEATHER (acute kidney injury): (3) Diabetes mellitus, type II: (4) Dyslipidemia: Updated Medication List Medication Instructions Recorded Confirmed Type aspirin 81 mg tablet,delayed 81 mg PO DAILY 02/26/19 05/12/23 History release empagliflozin 25 mg tablet 25 mg PO DAILY 02/26/19 05/12/23 History (Jardiance) glimepiride 4 mg tablet 4 mg PO BID 02/26/19 05/12/23 History blood sugar diagnostic (Accu-Chek #100 ea 01/25/23 02/26/23 Rx Jenni Plus test strips) lancets (Accu-Chek Fastclix Lancet #100 ea 01/25/23 02/26/23 Rx Drum) cholecalciferol (vitamin D3) 25 25 mcg PO DAILY 3 months #90 caps 04/30/23 05/12/23 Rx mcg (1,000 unit) capsule lisinopril 5 mg tablet 5 mg PO DAILY #90 tabs 04/30/23 05/12/23 Rx potassium chloride 10 mEq 10 meq PO BID #180 caps 04/30/23 05/12/23 Rx capsule,extended release pravastatin 10 mg tablet 10 mg PO DAILY #90 tabs 04/30/23 05/12/23 Rx ondansetron 4 mg disintegrating 4 mg PO Q8H PRN Nausea 05/12/23 05/12/23 History tablet oxycodone 5 mg tablet 5 mg PO DIRECTED PRN Pain 05/12/23 05/12/23 History semaglutide 1 mg/dose (4 mg/3 mL) See Rx Instructions .Route .COMPLEX 05/12/23 05/12/23 History subcutaneous pen injector (Ozempic) tamsulosin 0.4 mg capsule 0.4 mg PO QAM 05/12/23 05/12/23 History oxybutynin chloride 5 mg 5 mg PO DAILY #3 tabs 05/13/23 Rx tablet,extended release 24 hr (Ditropan XL) phenazopyridine 100 mg tablet 100 mg PO Q8H PRN painful 05/13/23 Rx (Pyridium) urination #6 tabs Hospital Stay Data Consultations 05/12/23 15:29 ED Decision to Admit Stat 05/12/23 20:41 Consult Urology Routine Procedures Performed Operation Date: 05/13/23 08:25 Actual Procedures p Cystoscopy, Right Retrograde pyelogram, Right ureteroscopy, Laser, Right Ureteral Stent Insertion(Right) - Jorge Grajeda MD Diagnostic Imagining Performed 05/12/23 13:29 CT abd pelvis IV con only Stat 05/13/23 09:00 FL retrograde includes kub Routine Pending Results Patient Have Any Pending Studies at Discharge: No Discharge Instructions Given to Patient (Per Discharging Provider) KIDNEY STONE: -Take Tylenol and ibuprofen as needed for discomfort. Continue Flomax. -Oxybutynin as needed for bladder spasms. This can cause dry mouth, dry eyes and constipation -Remove your ureteral stent on 05/15/23 in the morning by pulling on the string. If you not feel comfortable doing this, our nursing staff can remove it for you the following day. If your stent becomes dislodged prior to scheduled removal, this is okay and just remove the stent. -Normal to see blood in your urine while stent in place. As long as you are able to urinate, this is okay. -You will get a call for a follow-up appointment in 2 months with a renal ultrasound prior. Acute kidney injury: Please have Dr. Etienne repeat blood work for your kidney function in 1 week to make sure your kidney function is completely returned to normal. Pancreatitis: This was seen on the CT scan of your abdomen incidentally even though you aren't really having symptoms of pancreatitis. This may be from your Ozempic and it is recommended that you stop taking this drug and discuss further follow up of the pancreas with your PCP and/or a GI doctor. Coding Diagnoses Hydronephrosis due to obstruction of ureter N13.1 HEATHER (acute kidney injury) N17.9 Diabetes mellitus, type II E11.9 Dyslipidemia E78.5
[2023-05-13] MEDS ORDERED: INSULIN ASPART PER UNIT CHARGE SC SCH (16:30)
== END 2023-05-13 18:14 | disposition home or self-care (01) ==
LOC: EDINP 12:18 → ED 12:18 → SUATTDRO 17:29 → 3E 22:15